=== PATIENT | female | born 1965 | race Caucasian/White ===

== ENCOUNTER → 2016-09-03 | Outpatient (CLI) | payer OTHER ==
--- NOTE | 2016-09-03 15:47 | REP ---
Clinical: Left adnexal cysts. Technique: Transabdominal pelvic ultrasound followed by transvaginal examination for better evaluation of the adnexa. Correlation: CT dated 05/19/2016. Findings: Bladder is unremarkable and measures 8.8 x 6.4 x 5.6 cm. The patient is status post hysterectomy and oophorectomy. Residual cervical tissue demonstrate small chronic calcifications. No pelvic mass or fluid collection identified. No obvious adnexal cyst. Impression: Status post hysterectomy and oophorectomy. Small left adnexal cysts identified on CT are not visualized by current ultrasound. Signed by Juan Carlos Lucas MD 09/03/2016 03:39 P
== END ==
LOC: M RAD 13:41
PROVIDERS: ATTEND Specialist
DX: N83.292 Other ovarian cyst, left side (principal); Z87.898 Personal history of other specified conditions

== ENCOUNTER → 2016-09-07 | Outpatient (REF) | payer OTHER ==
[2016-09-07 12:44] LABS: MEAN CORPUSCULAR HEMOGLOBIN 29.3 pg (27.0-33.0); MEAN CORPUSCULAR HGB CONC 32.7 g/dl (32.0-36.5); MEAN CORPUSCULAR VOLUME 89.5 fl (80.0-96.0); RED CELL DISTRIBUTION WIDTH 13.4 % (11.5-14.5); WHITE BLOOD COUNT 6.6 K/mm3 (4.0-10.0)
[2016-09-07 12:55] LABS: ALBUMIN 3.4 GM/DL (3.2-5.2); ALBUMIN/GLOBULIN RATIO 1.13 (1.00-1.93); BILIRUBIN,TOTAL 0.4 MG/DL (0.2-1.0); CALCIUM LEVEL 8.5 MG/DL (8.5-10.1); CREATININE FOR GFR 1.73 MG/DL (0.55-1.02); GLOMERULAR FILTRATION RATE 33.5 (>58); POTASSIUM SERUM 4.3 MEQ/L (3.5-5.1); TOTAL PROTEIN 6.4 GM/DL (6.4-8.2)
== END ==
LOC: M LABDRAW1 11:40
PROVIDERS: ATTEND Nurse Practitioner Family
DX: E78.00 Pure hypercholesterolemia, unspecified (principal)

== ENCOUNTER → 2016-09-25 | Emergency (ER) | payer OTHER ==
[~2016-09-25] VITALS: Ht 162.6 cm; Wt 131.5 kg
[~2016-09-25] MED LIST: BUPR300T34; CALC1CAP31; FURO20TA2 PO; HYDR25T; K-TA10TA2 PO; LASI20TA PO; POTA1TAB23 PO; PRIL20CA9 PO; SIMV20TA2 PO; SIMV40TA2 PO; TRAM50TA2 PO; VITA50003
[2016-09-25 17:58] VITALS: BP 138/92
== END | disposition home or self-care (01) ==
LOC: M ED 18:56
DX: H92.02 Otalgia, left ear (principal); F17.210 Nicotine dependence, cigarettes, uncomplicated; Z79.899 Other long term (current) drug therapy

== ENCOUNTER 2016-10-09 17:04 | Emergency (ER) | payer OTHER ==
[~2016-10-09] VITALS: Ht 162.6 cm; Wt 132.9 kg
[~2016-10-09 17:04] MED LIST changes: -BUPR300T34; -CALC1CAP31; -FURO20TA2 PO; -HYDR25T; -POTA1TAB23 PO; -SIMV20TA2 PO; -VITA50003
[2016-10-09] MEDS ORDERED: CALC1CAP31 (17:15)
[2016-10-09] MEDS ORDERED: HYDR25T (17:15)
[2016-10-09] MEDS ORDERED: SIMV20TA2 PO (17:15)
[2016-10-09] MEDS ORDERED: VITA50003 (17:15)
[2016-10-09] MEDS ORDERED: BUPR300T34 (17:15)
[2016-10-09] MEDS ORDERED: FURO20TA2 PO (17:15)
[2016-10-09] MEDS ORDERED: POTA1TAB23 PO (17:15)
--- NOTE | 2016-10-09 18:26 | REP ---
BILATERAL RIBS AND PA CHEST, FIVE VIEWS: HISTORY: Rib pain. COMPARISON: 08/03/2013 The lungs are clear. The heart is normal in size. The pulmonary vasculature is normal in appearance. The bony structure is intact. IMPRESSION:No acute disease. Signed by Oh Reina MD 10/09/2016 06:31 P
[2016-10-09 18:48] VITALS: BP 136/79
== END 2016-10-09 18:51 | disposition home or self-care (01) ==
LOC: M ED 18:24
DX: S20.221A Contusion of right back wall of thorax, initial encounter (principal); S20.222A Contusion of left back wall of thorax, initial encounter; V49.40XA Driver injured in collision with unspecified motor vehicles in traffic accident, initial encounter; Y92.410 Unspecified street and highway as the place of occurrence of the external cause; E78.00 Pure hypercholesterolemia, unspecified; J45.909 Unspecified asthma, uncomplicated; Z85.41 Personal history of malignant neoplasm of cervix uteri; F17.210 Nicotine dependence, cigarettes, uncomplicated; Z79.899 Other long term (current) drug therapy

== ENCOUNTER 2016-12-29 10:51 | Emergency (ER) | payer OTHER ==
[~2016-12-29] VITALS: Ht 162.6 cm; Wt 134.1 kg
[2016-12-29 10:51] VITALS: BP 120/95
[~2016-12-29 10:51] MED LIST changes: +BUPR300T34; +CALC1CAP31; +FURO20TA2 PO; +HYDR-3363 PO; +POTA1TAB23 PO; +SIMV20TA2 PO; +VITA1CAP40 PO
[2016-12-29] MEDS ORDERED: FLON1SPR (11:09)
[2016-12-29] MEDS ORDERED: CLAR1TAB13 PO (11:09)
[2016-12-29] MEDS ORDERED: CEFD1CAP8 PO (11:28)
[2016-12-29] MEDS ORDERED: OFLO0.3D57 OU (11:28)
== END 2016-12-29 11:39 | disposition home or self-care (01) ==
LOC: M ED 10:51
DX: H65.193 Other acute nonsuppurative otitis media, bilateral (principal); H10.10 Acute atopic conjunctivitis, unspecified eye; J45.909 Unspecified asthma, uncomplicated; F41.9 Anxiety disorder, unspecified; F33.8 Other recurrent depressive disorders; Z85.41 Personal history of malignant neoplasm of cervix uteri; Z79.899 Other long term (current) drug therapy

== ENCOUNTER → 2017-01-19 | Outpatient (REF) | payer OTHER ==
[~2017-01-19] MED LIST changes: +CEFD1CAP8 PO; +CLAR1TAB13 PO; +FLON1SPR; +OFLO0.3D57 OU; +ZYRT10CA PO
== END ==
LOC: M LAB REF 12:44
PROVIDERS: ATTEND Internal Medicine Nephrology
DX: N39.0 Urinary tract infection, site not specified (principal)

== ENCOUNTER 2017-02-11 09:41 | Emergency (ER) | payer OTHER ==
[~2017-02-11] VITALS: Ht 162.6 cm; Wt 136.0 kg
[~2017-02-11 09:41] MED LIST changes: -ZYRT10CA PO
[2017-02-11 10:40] LABS: BASO # 0.1 K/mm3 (0.0-0.2); BASO % 1.2 % (0.0-1.0); EOS # 0.3 K/mm3 (0.0-0.50); EOS % 3.8 % (0.0-3.0); LARGE UNSTAINED CELL # 0.2 K/mm3 (0.0-0.4); LARGE UNSTAINED CELL % 1.9 % (0.0-4.0); LYMPH # 3.9 K/mm3 (1.5-4.5); LYMPH % 50.1 % (24.0-44.0); MEAN CORPUSCULAR HEMOGLOBIN 30.3 pg (27.0-33.0); MEAN CORPUSCULAR HGB CONC 33.5 g/dl (32.0-36.5); MEAN CORPUSCULAR VOLUME 90.4 fl (80.0-96.0); MONO # 0.3 K/mm3 (0.0-0.8); PLATELET COUNT, AUTOMATED 234 k/mm3 (150-450); WHITE BLOOD COUNT 7.8 K/mm3 (4.0-10.0)
[2017-02-11 11:19] LABS: ALBUMIN 3.6 GM/DL (3.2-5.2); BILIRUBIN,DIRECT 0.1 MG/DL (0.0-0.2); BILIRUBIN,TOTAL 0.5 MG/DL (0.2-1.0); CALCIUM LEVEL 8.9 MG/DL (8.5-10.1); CREATININE FOR GFR 1.87 MG/DL (0.55-1.02); GLOMERULAR FILTRATION RATE 30.5 (>58); POTASSIUM SERUM 4.1 MEQ/L (3.5-5.1); TOTAL PROTEIN 7.2 GM/DL (6.4-8.2)
--- NOTE | 2017-02-11 11:42 | REP ---
CT ABDOMEN PELVIS WITHOUT IV OR ORAL CONTRAST: HISTORY: Left upper quadrant and left CVA pain. History of polycystic kidney disease. COMPARISON STUDY: May 19, 2016. CT FINDINGS: Preliminary knocker out radiograph shows clips in the gallbladder fossa. The lung bases are clear. The liver shows moderate diffuse fatty infiltration. This is more pronounced than on the prior study. There are rounded and geographic areas of lower density within the left lobe and right lobe of the liver consistent with focal fatty replacement. The spleen is unremarkable. No adrenal lesion is observed. Pancreas is unremarkable. The kidneys are enlarged and are seen to containing numerous cysts as before. No evidence of mass or hydronephrosis. There is evidence of intrarenal calculi and some focal cyst wall calcification bilaterally unchanged. No retroperitoneal mass or adenopathy is seen. Normal aorta is seen. A normal appendix is noted in the right lower quadrant. Uterus is surgically absent. Urinary bladder is empty at the time of scanning but otherwise unremarkable. No abdominal wall defect is seen. Bone window settings show no bony destructive lesion. IMPRESSION: 1. Polycystic kidney disease with an enlarged polycystic kidneys bilaterally unchanged from prior study. Small intrarenal calculi bilaterally. No hydronephrosis. 2. Moderate diffuse fatty infiltration of the liver more pronounced than on the prior exam. 3. Post cholecystectomy and hysterectomy. Otherwise unremarkable. Signed by Michel Zaidi MD 02/11/2017 02:37 P
[2017-02-11] MEDS ORDERED: TRAM50TA2 PO (11:45)
[2017-02-11 11:50] VITALS: BP 117/74
== END 2017-02-11 11:58 | disposition home or self-care (01) ==
LOC: M ED 09:41
DX: Q61.3 Polycystic kidney, unspecified (principal); K76.0 Fatty (change of) liver, not elsewhere classified; M54.5 Low back pain; K21.9 Gastro-esophageal reflux disease without esophagitis; J45.909 Unspecified asthma, uncomplicated; E78.00 Pure hypercholesterolemia, unspecified; F41.9 Anxiety disorder, unspecified; F17.210 Nicotine dependence, cigarettes, uncomplicated; Z87.442 Personal history of urinary calculi; Z79.899 Other long term (current) drug therapy

== ENCOUNTER → 2017-02-18 | Outpatient (REF) | payer OTHER ==
[~2017-02-18] MED LIST changes: +ZYRT10CA PO
[2017-02-18 13:47] LABS: MEAN CORPUSCULAR HEMOGLOBIN 29.7 pg (27.0-33.0); MEAN CORPUSCULAR HGB CONC 32.6 g/dl (32.0-36.5); MEAN CORPUSCULAR VOLUME 91.1 fl (80.0-96.0); RED CELL DISTRIBUTION WIDTH 14.1 % (11.5-14.5); WHITE BLOOD COUNT 7.7 K/mm3 (4.0-10.0)
[2017-02-18 14:35] LABS: ALBUMIN 3.3 GM/DL (3.2-5.2); ALBUMIN/GLOBULIN RATIO 1.03 (1.00-1.93); BILIRUBIN,TOTAL 0.5 MG/DL (0.2-1.0); CALCIUM LEVEL 8.4 MG/DL (8.5-10.1); CREATININE FOR GFR 1.6 MG/DL (0.55-1.02); GLOMERULAR FILTRATION RATE 36.5 (>58); POTASSIUM SERUM 4.4 MEQ/L (3.5-5.1); TOTAL PROTEIN 6.5 GM/DL (6.4-8.2)
== END ==
LOC: M LABDRAW1 09:52
PROVIDERS: ATTEND Nurse Practitioner Family
DX: E78.00 Pure hypercholesterolemia, unspecified (principal); I10 Essential (primary) hypertension

== ENCOUNTER 2017-03-26 08:14 | Emergency (ER) | payer OTHER ==
[~2017-03-26] VITALS: Ht 162.6 cm; Wt 136.4 kg
[~2017-03-26 08:14] MED LIST changes: -ZYRT10CA PO
[2017-03-26] MEDS ORDERED: ZYRT10CA PO (08:40)
[2017-03-26 09:22] LABS: CONTROL LINE UCG INT CTR LINE PRESENT
[2017-03-26 09:33] LABS: BASO # 0.1 10^3/uL (0.0-0.2); BASO % 0.7 % (0.0-1.0); EOS # 0.2 10^3/uL (0.0-0.50); EOS % 2.3 % (0.0-3.0); IMMATURE GRANULOCYTE % 0.7 % (0-0); LYMPH # 3.9 10^3/uL (1.5-4.5); LYMPH % 42.2 % (24.0-44.0); MEAN CORPUSCULAR HEMOGLOBIN 29.5 pg (27.0-33.0); MEAN CORPUSCULAR HGB CONC 33.5 g/dl (32.0-36.5); MEAN CORPUSCULAR VOLUME 88.1 fl (80.0-96.0); MONO # 0.5 10^3/uL (0.0-0.8); MONO % 5.8 % (0.0-5.0); NEUTROPHILS # 4.5 10^3/uL (1.8-7.7); NEUTROPHILS % 48.3 % (36.0-66.0); PLATELET COUNT, AUTOMATED 218 10^3/uL (150-450); RED CELL DISTRIBUTION WIDTH 14.6 % (11.5-14.5); WHITE BLOOD COUNT 9.2 10^3/uL (4.0-10.0)
[2017-03-26 09:49] LABS: ALBUMIN 3.3 GM/DL (3.2-5.2); ALBUMIN/GLOBULIN RATIO 0.94 (1.00-1.93); BILIRUBIN,DIRECT 0.1 MG/DL (0.0-0.2); BILIRUBIN,TOTAL 0.5 MG/DL (0.2-1.0); CALCIUM LEVEL 8.8 MG/DL (8.5-10.1); CREATININE FOR GFR 1.74 MG/DL (0.55-1.02); GLOMERULAR FILTRATION RATE 33.1 (>58); POTASSIUM SERUM 4.2 MEQ/L (3.5-5.1); TOTAL PROTEIN 6.8 GM/DL (6.4-8.2)
--- NOTE | 2017-03-26 10:46 | REP ---
Renal ultrasound: The patient has known polycystic renal disease. The patient complains of left leg pain. There are numerous bilateral renal cyst can compatible with the history of polycystic renal disease. The kidneys are enlarged. The right kidney measures 14.2 x 6.7 x 7.7 cm. Left kidney measures 20.7 x 7 x 198.5 cm. There is no hydronephrosis on the right on the left. No renal calculi or masses are identified. Very low normal renal parenchyma is identified, the parenchymal mostly replaced by numerous renal cysts bilaterally. Study is technically difficult because of patient body habitus and polycystic renal disease. Impression: There is no hydronephrosis. No renal calculi are identified. Numerous renal cysts are identified bilaterally compatible with the clinical history of polycystic renal disease. Bladder ultrasound: No bladder wall masses or polyps are identified. The bladder is otherwise unremarkable. Impression: There is no hydronephrosis. No renal calculi are identified. Numerous renal cortical cysts are identified compatible with the clinical history of polycystic renal disease. No definable normal renal parenchyma is identified. Signed by Darnell Booker MD 03/26/2017 10:38 A
[2017-03-26 11:02] VITALS: BP 138/98
== END 2017-03-26 11:02 | disposition home or self-care (01) ==
LOC: M ED 08:14
DX: Q61.3 Polycystic kidney, unspecified (principal); J45.909 Unspecified asthma, uncomplicated; E78.70 Disorder of bile acid and cholesterol metabolism, unspecified; F33.9 Major depressive disorder, recurrent, unspecified; F17.210 Nicotine dependence, cigarettes, uncomplicated; Z79.899 Other long term (current) drug therapy; Z87.442 Personal history of urinary calculi; Z98.890 Other specified postprocedural states

== ENCOUNTER → 2017-04-09 | Outpatient (REF) | payer OTHER ==
[~2017-04-09] MED LIST changes: +ZYRT10CA PO
== END ==
LOC: M LAB REF 13:05
PROVIDERS: ATTEND Internal Medicine Nephrology
DX: R10.32 Left lower quadrant pain (principal)

== ENCOUNTER 2017-06-01 08:43 | Emergency (ER) | payer OTHER ==
[~2017-06-01] VITALS: Ht 162.6 cm; Wt 140.9 kg
[2017-06-01 08:43] VITALS: BP 116/84
[2017-06-01] MEDS ORDERED: AUGM875T28 PO (09:18)
== END 2017-06-01 09:29 | disposition home or self-care (01) ==
LOC: M ED 08:43
DX: R51 Headache (principal); J01.01 Acute recurrent maxillary sinusitis; Z72.0 Tobacco use

== ENCOUNTER → 2017-06-19 | Outpatient (CLI) | payer OTHER ==
[2017-06-19 12:18] LABS: HEMATOCRIT 51.3 % (36.0-47.0); HEMOGLOBIN 16.6 g/dl (12.0-16.0); MEAN CORPUSCULAR HEMOGLOBIN 29.1 pg (27.0-33.0); MEAN CORPUSCULAR HGB CONC 32.4 g/dl (32.0-36.5); MEAN CORPUSCULAR VOLUME 89.8 fl (80.0-96.0); PLATELET COUNT, AUTOMATED 216 10^3/uL (150-450); RED BLOOD COUNT 5.71 10^6/uL (4.00-5.40); RED CELL DISTRIBUTION WIDTH 13.8 % (11.5-14.5); WHITE BLOOD COUNT 7.4 10^3/uL (4.0-10.0)
[2017-06-19 12:41] LABS: ALBUMIN 3.4 GM/DL (3.2-5.2); ALBUMIN/GLOBULIN RATIO 1.06 (1.00-1.93); ALKALINE PHOSPHATASE 88 U/L (45-117); ALT/SGPT 59 U/L (12-78); ANION GAP 6 MEQ/L (8-16); AST/SGOT 79 U/L (7-37); BILIRUBIN,TOTAL 0.4 MG/DL (0.2-1.0); BLOOD UREA NITROGEN 14 MG/DL (7-18); CALCIUM LEVEL 8.7 MG/DL (8.5-10.1); CARBON DIOXIDE LEVEL 28 MEQ/L (21-32); CHLORIDE LEVEL 109 MEQ/L (98-107); CHOLESTEROL LEVEL 178 MG/DL (<200); CHOLESTEROL RISK RATIO 4.684 (<5); CPK CREATINE PHOSPHOKINASE 97 U/L (26-192); CREATININE FOR GFR 1.71 MG/DL (0.55-1.02); GLOMERULAR FILTRATION RATE 33.8 (>58); GLUCOSE, FASTING 94 MG/DL (70-105); HDL CHOLESTEROL 38 MG/DL (>40); LDL CHOLESTEROL 105.6 MG/DL (<100); NON-HDL-C 140 MG/DL; POTASSIUM SERUM 4.9 MEQ/L (3.5-5.1); SODIUM LEVEL 143 MEQ/L (136-145); TOTAL PROTEIN 6.6 GM/DL (6.4-8.2); TRIGLYCERIDES LEVEL 172 MG/DL (<150)
[2017-06-21 09:02] LABS: TOTAL 25(OH) VITAMIN D 50.5 NG/ML (30.0-100.0)
== END ==
LOC: M LAB 11:40
DX: E55.9 Vitamin D deficiency, unspecified (principal); E78.00 Pure hypercholesterolemia, unspecified; E78.5 Hyperlipidemia, unspecified; E78.1 Pure hyperglyceridemia; T78.40XA Allergy, unspecified, initial encounter
CPT/HCPCS: 82550

== ENCOUNTER 2017-09-30 17:14 | Emergency (ER) | payer BC, OTHER | END 2017-09-30 17:56 | disposition home or self-care (01) | LOC: M ED 17:14 | DX: J01.80 Other acute sinusitis (principal); Z85.41 Personal history of malignant neoplasm of cervix uteri; J45.909 Unspecified asthma, uncomplicated; K21.9 Gastro-esophageal reflux disease without esophagitis; M54.9 Dorsalgia, unspecified; Z87.442 Personal history of urinary calculi; Z79.899 Other long term (current) drug therapy | CPT/HCPCS: 99282 ==

== ENCOUNTER 2017-10-18 08:57 | Emergency (ER) | payer BC | END 2017-10-18 12:24 | disposition home or self-care (01) | LOC: M ED 08:57 | DX: M47.812 Spondylosis without myelopathy or radiculopathy, cervical region (principal); M47.814 Spondylosis without myelopathy or radiculopathy, thoracic region; M47.816 Spondylosis without myelopathy or radiculopathy, lumbar region; M47.817 Spondylosis without myelopathy or radiculopathy, lumbosacral region; M48.061 Spinal stenosis, lumbar region without neurogenic claudication; M54.12 Radiculopathy, cervical region; Q61.3 Polycystic kidney, unspecified; E78.5 Hyperlipidemia, unspecified; M54.30 Sciatica, unspecified side; J45.909 Unspecified asthma, uncomplicated; F41.9 Anxiety disorder, unspecified; F17.200 Nicotine dependence, unspecified, uncomplicated; Z79.899 Other long term (current) drug therapy | CPT/HCPCS: 72128 ==

== ENCOUNTER → 2018-03-27 | Outpatient (CLI) | payer BC ==
[2018-03-27 12:00] LABS: ALBUMIN 3.1 GM/DL (3.2-5.2); ALKALINE PHOSPHATASE 91 U/L (45-117); ALT/SGPT 41 U/L (12-78); ANION GAP 7 MEQ/L (8-16); AST/SGOT 44 U/L (7-37); BILIRUBIN,TOTAL 0.6 MG/DL (0.2-1.0); BLOOD UREA NITROGEN 17 MG/DL (7-18); CALCIUM LEVEL 8.4 MG/DL (8.5-10.1); CARBON DIOXIDE LEVEL 30 MEQ/L (21-32); CHLORIDE LEVEL 108 MEQ/L (98-107); CHOLESTEROL LEVEL 150 MG/DL (<200); CHOLESTEROL RISK RATIO 4.687 (<5); CPK CREATINE PHOSPHOKINASE 64 U/L (26-192); CREATININE FOR GFR 1.86 MG/DL (0.55-1.30); GLOMERULAR FILTRATION RATE 30.5 (>51); GLUCOSE, FASTING 109 MG/DL (70-100); HDL CHOLESTEROL 32 MG/DL (>40); LDL CHOLESTEROL 82 MG/DL (<100); NON-HDL-C 118 MG/DL; POTASSIUM SERUM 4.7 MEQ/L (3.5-5.1); SODIUM LEVEL 145 MEQ/L (136-145); TOTAL PROTEIN 6.2 GM/DL (6.4-8.2); TRIGLYCERIDES LEVEL 182 MG/DL (<150)
[2018-03-28 09:00] LABS: TOTAL 25(OH) VITAMIN D 38.2 NG/ML (30.0-100.0)
== END ==
LOC: M LAB 11:03
DX: E78.00 Pure hypercholesterolemia, unspecified (principal); I10 Essential (primary) hypertension; E55.9 Vitamin D deficiency, unspecified
CPT/HCPCS: 82550

== ENCOUNTER → 2018-03-28 | Outpatient (CLI) | payer BC ==
[2018-03-28 22:38] LABS: HEMATOCRIT 49.4 % (36.0-47.0); MEAN CORPUSCULAR HEMOGLOBIN 30.2 pg (27.0-33.0); MEAN CORPUSCULAR HGB CONC 32.4 g/dl (32.0-36.5); MEAN CORPUSCULAR VOLUME 93.4 fl (80.0-96.0); PLATELET COUNT, AUTOMATED 192 10^3/uL (150-450); RED BLOOD COUNT 5.29 10^6/uL (4.00-5.40); RED CELL DISTRIBUTION WIDTH 14.4 % (11.5-14.5); WHITE BLOOD COUNT 10.3 10^3/uL (4.0-10.0)
== END ==
LOC: M LAB 16:33
DX: R53.83 Other fatigue (principal); D64.9 Anemia, unspecified
CPT/HCPCS: 84443

== ENCOUNTER 2018-06-29 15:56 | Emergency (ER) | payer BC ==
[~2018-06-29] VITALS: Ht 162.6 cm; Wt 137.7 kg
[~2018-06-29 15:56] MED LIST changes: +ALEV220C2 PO; +AUGM875T28 PO; -LASI20TA PO; +LASI20TA3 PO; -VITA1CAP40 PO; +VITA50005 PO; +[UNRECOGNIZED DRUG - CODE] XX
[2018-06-29] MEDS ORDERED: POTA4.25 PO (16:13)
[2018-06-29] MEDS ORDERED: LEVO50TA5 PO (16:13)
[2018-06-29] MEDS ORDERED: ONDANSETRON 4 MG ORAL DISINTEGRATING TAB (Q0162 PER 1MG) PO ONE (16:30)
[2018-06-29 17:13] LABS: HEMATOCRIT 51.4 % (36.0-47.0); HEMOGLOBIN 17.2 g/dl (12.0-15.5); MEAN CORPUSCULAR HEMOGLOBIN 30.8 pg (27.0-33.0); MEAN CORPUSCULAR HGB CONC 33.5 g/dl (32.0-36.5); MEAN CORPUSCULAR VOLUME 92.1 fl (80.0-96.0); PLATELET COUNT, AUTOMATED 175 10^3/uL (150-450); RED BLOOD COUNT 5.58 10^6/uL (4.00-5.40); WHITE BLOOD COUNT 9.6 10^3/uL (4.0-10.0)
[2018-06-29 17:14] LABS: CALCIUM LEVEL 9.3 MG/DL (8.5-10.1); CREATININE FOR GFR 1.97 MG/DL (0.55-1.30); GLOMERULAR FILTRATION RATE 28.6 (>51); POTASSIUM SERUM 4.6 MEQ/L (3.5-5.1)
[2018-06-29 17:44] LABS: ATYPICAL LYMPH 8 % (0-5); EOSINOPHILS 3 % (0-5); GIANT PLATELETS 1+; LYMPHOCYTES 39 % (16-52); MONOCYTES 7 % (0-8); NEUTROPHILS 43 % (35-75); PLATELET ESTIMATE NORMAL (NORMAL)
[2018-06-29] MEDS ORDERED: TRAM50TA2 PO (17:53)
[2018-06-29] MEDS ORDERED: KEFL500C17 PO (17:53)
[2018-06-29 17:54] VITALS: BP 119/69
--- NOTE | 2018-06-29 18:04 | REP ---
CT abdomen and pelvis without IV or oral contrast: History: Left flank pain. History of stones. Comparison CT study February 11, 2017. Findings: Preliminary digital financial aid manager radiograph is unremarkable. The lung bases are clear. There are multiple small low-density areas in the liver unchanged from prior study consistent with cysts. The largest of these in the left lobe measuring 2.3 cm. There is diffuse fatty infiltration of the liver. The spleen is unremarkable. No pancreatic abnormality is seen. The gallbladder is surgically absent. There are innumerable cysts producing enlargement of the kidneys bilaterally consistent with polycystic kidney disease. There is an intrarenal calculus in the lower pole of the right kidney measuring 6 mm in greatest diameter. There are some cyst wall calcification. Parenchymal calcifications but no other intrarenal stone is appreciated. No hydronephrosis is seen on either side. The right lower pole intrarenal calculus is unchanged from the comparison CT study. No retroperitoneal mass or adenopathy is seen. The uterus is surgically absent. Normal appendix is seen in the right lower quadrant. No abdominal wall defect is seen. There is no bony destructive lesion. Some degenerative spondylosis changes are noted. There is a left ovarian cyst 5.3 x 3.7 x 5.2 cm in diameter. This is larger than it was on January 2017. Impression: Polycystic kidney disease. No hydronephrosis seen. There is a 6 mm calculus in the lower pole of the right kidney unchanged. There is a 5.3 cm cystic lesion in the left ovary increased in size from February 11, 2017. No acute intra-abdominal abnormality. Electronically Signed by Michel Zaidi MD 06/29/2018 07:45 P
--- NOTE | 2018-07-01 08:23 | ED PDOC ---
Post-Departure Follow-Up robyn hadley faxed formal report of ct abd/p for fu Reji Rivas MD Jul 01, 2018 08:23
== END 2018-06-29 18:02 | disposition home or self-care (01) ==
LOC: M ED 15:56
DX: R10.9 Unspecified abdominal pain (principal)
CPT/HCPCS: 74176; 80048; 81001; 85025; 87086; 99283; Q0162

== ENCOUNTER → 2018-08-06 | Outpatient (CLI) | payer BC ==
[~2018-08-06] MED LIST changes: +KEFL500C17 PO; +LEVO50TA5 PO; +POTA4.25 PO
[2018-08-06 12:12] LABS: HEMATOCRIT 49.6 % (36.0-47.0); HEMOGLOBIN 16.3 g/dl (12.0-15.5); MEAN CORPUSCULAR HEMOGLOBIN 30.1 pg (27.0-33.0); MEAN CORPUSCULAR HGB CONC 32.9 g/dl (32.0-36.5); MEAN CORPUSCULAR VOLUME 91.5 fl (80.0-96.0); PLATELET COUNT, AUTOMATED 148 10^3/uL (150-450); RED BLOOD COUNT 5.42 10^6/uL (4.00-5.40); WHITE BLOOD COUNT 8.5 10^3/uL (4.0-10.0)
[2018-08-06 12:46] LABS: ALBUMIN 3.1 GM/DL (3.2-5.2); BILIRUBIN,TOTAL 0.4 MG/DL (0.2-1.0); CALCIUM LEVEL 8.6 MG/DL (8.5-10.1); CHOLESTEROL RISK RATIO 4.571 (<5); CREATININE FOR GFR 1.71 MG/DL (0.55-1.30); GLOMERULAR FILTRATION RATE 33.6 (>51); POTASSIUM SERUM 4.3 MEQ/L (3.5-5.1); TOTAL PROTEIN 6.5 GM/DL (6.4-8.2)
== END ==
LOC: M LAB 11:47
PROVIDERS: ATTEND Nurse Practitioner Family
DX: I10 Essential (primary) hypertension (principal); D64.9 Anemia, unspecified; E53.8 Deficiency of other specified B group vitamins

== ENCOUNTER → 2018-08-31 | Outpatient (REF) | payer BC | LOC: M LAB REF 12:32 | PROVIDERS: ATTEND Surgery | DX: D17.22 Benign lipomatous neoplasm of skin and subcutaneous tissue of left arm (principal) ==

== ENCOUNTER → 2018-11-20 | Outpatient (CLI) | payer BC ==
[~2018-11-20] MED LIST changes: +ALLE10TA62 PO; +OMEP20TA17 PO; +ZETI10TA30 PO
[2018-11-20 13:06] LABS: HEMATOCRIT 47.4 % (36.0-47.0); HEMOGLOBIN 15.8 g/dl (12.0-15.5); MEAN CORPUSCULAR HEMOGLOBIN 30.4 pg (27.0-33.0); MEAN CORPUSCULAR HGB CONC 33.3 g/dl (32.0-36.5); MEAN CORPUSCULAR VOLUME 91.3 fl (80.0-96.0); PLATELET COUNT, AUTOMATED 128 10^3/uL (150-450); RED BLOOD COUNT 5.19 10^6/uL (4.00-5.40); WHITE BLOOD COUNT 8.8 10^3/uL (4.0-10.0)
[2018-11-20 13:38] LABS: ALBUMIN 2.8 GM/DL (3.2-5.2); BILIRUBIN,TOTAL 0.5 MG/DL (0.2-1.0); CALCIUM LEVEL 8.2 MG/DL (8.5-10.1); CHOLESTEROL RISK RATIO 4.838 (<5); CREATININE FOR GFR 2.08 MG/DL (0.55-1.30); FREE T4 1.18 NG/DL (0.76-1.46); GLOMERULAR FILTRATION RATE 26.7 (>51); POTASSIUM SERUM 4.1 MEQ/L (3.5-5.1); THYROID STIMULATING HORMONE 0.034 uIU/ML (0.358-3.740); TOTAL PROTEIN 6.5 GM/DL (6.4-8.2)
== END ==
LOC: M LAB 12:40
PROVIDERS: ATTEND Nurse Practitioner Family
DX: E03.9 Hypothyroidism, unspecified (principal); E78.5 Hyperlipidemia, unspecified; I10 Essential (primary) hypertension; R73.9 Hyperglycemia, unspecified

== ENCOUNTER → 2019-01-06 | Outpatient (CLI) | payer BC ==
--- NOTE | 2019-01-06 15:15 | REP ---
RENAL AND BLADDER ULTRASOUND: Real-time sonographic evaluation of the kidneys performed. Both kidneys are enlarged, right kidney measuring 18.2 x 7.7 x 7.9 cm and left kidney 14.9 x 6.9 x 7.0 cm. There is no hydronephrosis bilaterally. The study is limited due to patient body habitus. Borders of the kidney are not well defined. Multiple renal cysts are present. The largest cyst on the right in the upper pole measures 3.8 cm and largest cyst in the left is in the lower pole 3 cm in diameter. Underlying renal calculi cannot be excluded. Urinary bladder is mildly distended and grossly unremarkable. IMPRESSION: Enlarged kidneys with multiple cysts. Underlying stones not excluded. No hydronephrosis. The study is extremely limited due to patient body habitus. Underlying solid mass could easily be missed. Electronically Signed by Darnell San MD 01/10/2019 05:36 P
== END ==
LOC: M RAD 13:39
PROVIDERS: ATTEND Internal Medicine Nephrology
DX: N18.4 Chronic kidney disease, stage 4 (severe) (principal); N20.0 Calculus of kidney; Q61.2 Polycystic kidney, adult type

== ENCOUNTER → 2019-02-03 | Outpatient (REF) | payer BC ==
[~2019-02-03] MED LIST changes: +ZETI10TA16 PO; -ZETI10TA30 PO
== END ==
LOC: M LAB REF 17:00
PROVIDERS: ATTEND Internal Medicine Nephrology
DX: R10.812 Left upper quadrant abdominal tenderness (principal)

== ENCOUNTER → 2019-02-06 | Outpatient (CLI) | payer BC ==
--- NOTE | 2019-02-07 11:13 | REP ---
CT of the abdomen pelvis without IV or bowel contrast for left upper quadrant pain and tenderness: Comparison is 08/31/2018. The the patient has known polycystic renal disease. There are multiple bilateral renal cysts, unchanged. There are hepatic cysts, unchanged. There are bilateral non obstructive renal calculi, unchanged. There is no hydronephrosis or hydroureter. There is no perinephric stranding. The the patient has a hysterectomy and reportedly also for activity. There is a 5.28 cm cyst in the pelvis on the left. This measured 4.9 cm previously. This could be a mesenteric cyst. The visualized lung temple are unremarkable. There are surgical clips in the gallbladder fossa, unchanged. The pancreas, spleen, adrenals, and abdominal aorta are unremarkable. There is no retroperitoneal adenopathy or mass. There is no bowel distension or obstruction. Mesentery is unremarkable. Pelvis: The appendix is unremarkable. There is no ascites. The bladder is unremarkable. The vaginal cuff is unremarkable. There is a cyst on the left as previously described. There is no ascites or adenopathy. There are scattered diverticula in the descending colon. There is no CT evidence of diverticulitis. There is degenerative disc disease in the lumbar spine at L 03/04 with an anterior bridging osteophyte. This is unchanged. Impression: There is no interval change except that the pelvic cyst on the left has increased in size. Known polycystic renal disease is unchanged. Nonobstructive bilateral renal calculi are unchanged. There is no hydronephrosis or hydroureter. Hepatic cysts are unchanged. There is a cyst in the pelvis on the left. This has increased in size, today measuring 5.28 cm, previously 4.9 cm. With the history of oophorectomy this may be a mesenteric cyst. There is descending colon diverticulosis without diverticulitis. Electronically Signed by Darnell Booker MD 02/06/2019 08:16 A
== END ==
LOC: M RAD 07:24
PROVIDERS: ATTEND Internal Medicine Nephrology
DX: N18.4 Chronic kidney disease, stage 4 (severe) (principal); Q61.2 Polycystic kidney, adult type

== ENCOUNTER → 2019-02-26 | Outpatient (CLI) | payer BC ==
[2019-02-26 12:52] LABS: HEMATOCRIT 50.3 % (36.0-47.0); HEMOGLOBIN 16.6 g/dl (12.0-15.5); MEAN CORPUSCULAR HEMOGLOBIN 30.6 pg (27.0-33.0); MEAN CORPUSCULAR VOLUME 92.6 fl (80.0-96.0); PLATELET COUNT, AUTOMATED 174 10^3/uL (150-450); RED BLOOD COUNT 5.43 10^6/uL (4.00-5.40); WHITE BLOOD COUNT 8.6 10^3/uL (4.0-10.0)
[2019-02-26 13:10] LABS: HEMOGLOBIN A1c 7.2 %
[2019-02-26 13:23] LABS: MAU/CREAT RATIO 60.1 MCG/MG (0.0-30.0)
[2019-02-26 13:39] LABS: ALBUMIN 3.2 GM/DL (3.2-5.2); BILIRUBIN,TOTAL 0.4 MG/DL (0.2-1.0); CALCIUM LEVEL 8.8 MG/DL (8.5-10.1); CHOLESTEROL RISK RATIO 4.757 (<5); CREATININE FOR GFR 2.24 MG/DL (0.55-1.30); FREE T4 0.92 NG/DL (0.76-1.46); GLOMERULAR FILTRATION RATE 24.5 (>51); POTASSIUM SERUM 4.7 MEQ/L (3.5-5.1); THYROID STIMULATING HORMONE 7.3 uIU/ML (0.358-3.740); TOTAL PROTEIN 6.6 GM/DL (6.4-8.2)
[2019-02-27 09:52] LABS: TOTAL 25(OH) VITAMIN D 45.1 NG/ML (30.0-100.0)
== END ==
LOC: M LAB 12:06
PROVIDERS: ATTEND Nurse Practitioner Family
DX: E78.5 Hyperlipidemia, unspecified (principal); I10 Essential (primary) hypertension; E55.9 Vitamin D deficiency, unspecified

== ENCOUNTER 2019-03-15 15:21 | Emergency (ER) | payer BC ==
[~2019-03-15] VITALS: Ht 162.6 cm; Wt 137.7 kg
[2019-03-15] MEDS ORDERED: GLIM1TAB PO (16:34)
[2019-03-15] MEDS ORDERED: MONT10TA2 (16:34)
[2019-03-15] MEDS ORDERED: NS 1,000 ML IV ONE (17:15)
[2019-03-15 17:54] LABS: HEMATOCRIT 52.2 % (36.0-47.0); MEAN CORPUSCULAR HEMOGLOBIN 30.1 pg (27.0-33.0); MEAN CORPUSCULAR HGB CONC 32.6 g/dl (32.0-36.5); MEAN CORPUSCULAR VOLUME 92.6 fl (80.0-96.0); PLATELET COUNT, AUTOMATED 174 10^3/uL (150-450); RED BLOOD COUNT 5.64 10^6/uL (4.00-5.40); WHITE BLOOD COUNT 9.2 10^3/uL (4.0-10.0)
--- NOTE | 2019-03-15 18:16 | REPVR ---
PROCEDURE INFORMATION: Exam: CT Abdomen and pelvis without contrast Exam date and time: 03/15/2019 5:47 PM Clinical history: 53 years old, female; Abdominal pain; Localized; Left upper quadrant (luq); Additional info: Luq pain, known abdominal cyst TECHNIQUE: Imaging protocol: Computed tomography of the abdomen and pelvis without contrast. Radiation optimization: All CT scans at this facility use at least one of these dose optimization techniques: automated exposure control; mA and/or kV adjustment per patient size (includes targeted exams where dose is matched to clinical indication); or iterative reconstruction. COMPARISON: CT ABD PELVIS W/O CONTRAST 02/06/2019 7:49 AM FINDINGS: Liver: There are cysts in the liver measuring up to 2.4 cm in the left lobe. No complex features demonstrated. Findings are stable. Gallbladder and bile ducts: There has been a cholecystectomy. Pancreas: Normal. No ductal dilation. Spleen: Normal. No splenomegaly. Adrenals: Normal. No mass. Kidneys and ureters: Bilaterally enlarged multicystic kidneys with extensive distortion of the renal parenchymal architecture, findings consistent with polycystic kidney disease. Several cysts contain calcification. Stomach and bowel: There is increased feces in the right and transverse colon consistent with constipation. Appendix: No evidence of appendicitis. Intraperitoneal space: Unremarkable. No free air. No significant fluid collection. Vasculature: Unremarkable. No abdominal aortic aneurysm. Lymph nodes: Unremarkable. No enlarged lymph nodes. Bladder: Unremarkable as visualized. Reproductive: There has been a hysterectomy. Cyst in the left lower quadrant measures 5.3 x 4.8 cm, stable in size in comparison to the prior study. Cyst likely of left ovarian origin. No significant solid components demonstrated. Correlation with ultrasound to exclude any complex features suggestive. Bones/joints: Severe central spinal stenosis L4-5. Soft tissues: Unremarkable. IMPRESSION: 1. There are cysts in the liver measuring up to 2.4 cm in the left lobe. No complex features demonstrated. Findings are stable. 2. There has been a cholecystectomy. 3. Bilaterally enlarged multicystic kidneys with extensive distortion of the renal parenchymal architecture, findings consistent with polycystic kidney disease. No significant interval change. 4. There has been a hysterectomy. 5. Cyst in the left lower quadrant measures 5.3 x 4.8 cm, stable in size in comparison to the prior study. Cyst likely of left ovarian origin. No significant solid components demonstrated. Correlation with ultrasound to exclude any complex features suggestive. 6. There is increased feces in the right and transverse colon consistent with constipation. COMMENT: Consistent with the [employer]'s Incidental Findings Committee Report (J [employer]iol 2010): Unless the patient's specific circumstances suggest otherwise, any liver lesion 0.5 cm or less, any cystic kidney lesion less than 1.0 cm, and/or any adrenal lesion 1.0 cm or less not otherwise characterized in this report as possessing suspicious or indeterminate imaging features is/are highly likely to be benign and do not require follow-up imaging or biopsy. Electronically signed by: Nathan Brewer On 03/15/2019 18:16:25 PM
[2019-03-15 18:26] LABS: ALBUMIN 3.2 GM/DL (3.2-5.2); ALT/SGPT 39 U/L (12-78); BILIRUBIN,DIRECT < 0.1 MG/DL (0.0-0.2); BILIRUBIN,TOTAL 0.5 MG/DL (0.2-1.0); LIPASE 204 U/L (73-393); TOTAL PROTEIN 6.9 GM/DL (6.4-8.2)
[2019-03-15 19:06] VITALS: BP 133/76
== END 2019-03-15 19:15 | disposition home or self-care (01) ==
LOC: M ED 15:21
DX: N83.202 Unspecified ovarian cyst, left side (principal); E11.9 Type 2 diabetes mellitus without complications; E07.9 Disorder of thyroid, unspecified; Q61.3 Polycystic kidney, unspecified; Z87.42 Personal history of other diseases of the female genital tract; Z87.442 Personal history of urinary calculi; F17.210 Nicotine dependence, cigarettes, uncomplicated; Z79.899 Other long term (current) drug therapy

== ENCOUNTER → 2019-04-06 | Outpatient (REF) | payer BC ==
[~2019-04-06] MED LIST changes: +GLIM1TAB2 PO; +MONT10TA2
== END ==
LOC: M LAB REF 11:29
PROVIDERS: ATTEND Physician Assistant Medical
DX: R30.0 Dysuria (principal)

== ENCOUNTER → 2019-04-21 | Outpatient (REF) | payer BC ==
[2019-04-21 23:17] LABS: APPEARANCE, URINE HAZY (CLEAR); BACTERIA, URINE AUTO NEGATIVE (NEGATIVE); BILIRUBIN, URINE AUTO NEGATIVE (NEGATIVE); BLOOD, URINE BLOOD NEGATIVE (NEGATIVE); COLOR, URINE YELLOW (YELLOW); GLUCOSE, URINE (UA) AUTO NEGATIVE (NEGATIVE); KETONE, URINE AUTO NEGATIVE (NEGATIVE); LEUKOCYTE ESTERASE, URINE AUTO NEGATIVE (NEGATIVE); NITRITE, URINE AUTO NEGATIVE (NEGATIVE); PROTEIN, URINE AUTO 1+ mg/dL (NEGATIVE); RBC, URINE AUTO 0 /HPF (0-3); SPECIFIC GRAVITY URINE AUTO 1.011 (1.002-1.035); SQUAMOUS EPITHELIAL CELL UR AU 5 /HPF (0-6); UROBILINOGEN, URINE AUTO 0.2 mg/dL (0.0-2.0); WBC, URINE AUTO 1 /HPF (0-3)
== END ==
LOC: M LAB REF 17:39
PROVIDERS: ATTEND Physician Assistant
DX: N39.0 Urinary tract infection, site not specified (principal)

== ENCOUNTER 2019-06-12 09:25 | Day surgery (SDC) | payer BC ==
[~2019-06-12] VITALS: Ht 162.6 cm; Wt 136.3 kg
[~2019-06-12 09:25] MED LIST changes: +BUPIVACAINE/EPIN 0.25% 30 ML VIAL As Ordered ONE; -BUPR300T34; +BUPR300T34 PO; -CALC1CAP31; +CALC1CAP31 PO; +FISH1000 PO; +LIDOCAINE 1% MDV 20ML VIAL SQ PRN; +LIDOCAINE 2% INJ 100 MG/5 ML SDV (FOR ANES.) As Ordered ONE; +LR 1,000 ML IV ONE; +MIDAZOLAM INJ 2 MG/2 ML VIAL (J2250) As Ordered ONE; -MONT10TA2; +MONT10TA2 PO; +PROPOFOL 200 MG/20 ML VIAL As Ordered ONE; +ROCURONIUM BROMIDE 50 MG/5 ML VIAL As Ordered ONE; -SIMV20TA2 PO; +SIMV20TA22 PO; -SIMV40TA2 PO; +SIMV40TA20 PO; +ceFAZolin SOD 2 GM in IV 1 EA IV ONE; +fentaNYL 250 MCG/5 ML INJECTION (J3010) As Ordered ONE
[2019-06-12] MEDS ORDERED: HumaLOG INSULIN (NovoLOG) PER UNIT As Ordered ONE (10:32)
[2019-06-12] MEDS ORDERED: HumaLOG INSULIN (NovoLOG) PER UNIT SC ONE (10:45)
[2019-06-12] MEDS ORDERED: ACETAMINOPHEN 1000MG 100ML IV BTL (OFIRMEV) (J0131 PER 10MG) As Ordered ONE (11:57)
[2019-06-12] MEDS ORDERED: LABETALOL HCL 100 MG/20 ML VIAL As Ordered ONE (12:14)
[2019-06-12] MEDS ORDERED: ONDANSETRON 4MG/2ML VIAL (J2405) As Ordered ONE (12:27)
[2019-06-12] MEDS ORDERED: KETOROLAC 60 MG/2 ML VIAL (J1885) As Ordered ONE (12:27)
[2019-06-12] MEDS ORDERED: METOCLOPRAMIDE INJ 10MG/2ML VIAL (J2765) As Ordered ONE (12:27)
[2019-06-12] MEDS ORDERED: SUGAMMADEX SODIUM 500 MG/5 ML VIAL (BRIDION) As Ordered ONE (12:30)
[2019-06-12] MEDS ORDERED: MORPHINE 2 MG/ML 1ML VIAL (J2270) IV PRN (13:15)
[2019-06-12] MEDS ORDERED: METOCLOPRAMIDE INJ 10MG/2ML VIAL (J2765) IV PRN (13:15)
[2019-06-12] MEDS ORDERED: ONDANSETRON 4MG/2ML VIAL (J2405) IV PRN (13:15)
[2019-06-12] MEDS ORDERED: oxyCODONE 5MG TAB PO PRN (13:15)
[2019-06-12] MEDS ORDERED: LR 1,000 ML IV SCH (13:15)
[2019-06-12] MEDS ORDERED: fentaNYL 100 MCG/2 ML INJECTION (J3010) IV PRN (13:15)
[2019-06-12] MEDS ORDERED: NORCO, ANEXSIA 5/325MG TABLET (HYDROcodone/ACETAMINOPHEN) PO PRN (13:15)
[2019-06-12 14:50] VITALS: BP 120/66
--- NOTE | 2019-06-12 18:03 | RO ---
DATE OF PROCEDURE: 06/12/2019 PREOPERATIVE DIAGNOSIS: Left lower quadrant pain. POSTOPERATIVE DIAGNOSIS: Left lower quadrant pain secondary to adhesions in the left lower quadrant and large left pelvic cyst. PROCEDURE: Robotic lysis of adhesions along with excision of a left pelvic cyst. SURGEON: Dr. Goins CAGE CLERK: None. ANESTHESIA: General. ESTIMATED BLOOD LOSS: 5 COMPLICATIONS: None. INDICATIONS FOR PROCEDURE: The patient is a 53-year-old female status post hysterectomy and left oophorectomy presents with persistent left lower quadrant pain. She had a left pelvic cyst on CT but IR was unable to drain it. They feel that this cyst may the cause of her pains. Therefore recommendation was to proceed with diagnostic laparoscopy, possible removal of cyst. Risks, benefits procedure not limited but including bleeding, infection, persistent pain, hernia formation, damage to surrounding structure need for further surgery discussed in detail with the patient. Informed consent was obtained procedure was planned. PROCEDURE: The patient brought back to operating room seven after sufficient sedation. The abdomen was sterilely prepped and draped. Next time-out was done confirm proper patient and proper procedure. Following that 8 mm incision made in left midabdomen. A Veress needle was then inserted and the abdomen was insufflated to 50 mmHg. Veress needle was then removed 8 mm robotic port was then placed in the abdomen was examined. There were adhesions, they were obvious in left lower quadrant very dense adhesions without any bowel in them but they are extremely vascular. Two more ports were then placed, one in the mid abdomen and one on the right side robot was then docked to the port. Next from the console I used a combination of bipolar and monopolar cautery. I was able to dissect through all of the adhesions and take those down. No signs of any hernia was seen. Once that was completed the patient is placed in Trendelenburg position. There is a large cystic ovary identified in the right side. On the left I was to dissect the sigmoid colon laterally and mobilize it towards the midline. Posterior to the sigmoid colon about the level the pelvic brim was very large cystic structure about 8-10 cm in size. I was able to dissect around this circumferentially and completely remove it and once it was removed was placed inside of 5 mm EndoCatch bag. The cyst was popped and then the cyst was able to be removed through an 8 mm port site. The fluid that was leaked inside the abdomen was drained out of the pelvis using the suction tip. The abdomen was then desufflated and ports removed. Skin incisions closed 4-0 Vicryl subcuticular sutures. The abdomen cleaned and dried. Steri-Strips, 4x4, and tape were applied thus ending procedure.
== END 2019-06-12 15:03 | disposition home or self-care (01) ==
LOC: M SDC 09:25
PROVIDERS: ATTEND Surgery
DX: K66.0 Peritoneal adhesions (postprocedural) (postinfection) (principal); N94.89 Other specified conditions associated with female genital organs and menstrual cycle; E11.9 Type 2 diabetes mellitus without complications; E03.9 Hypothyroidism, unspecified; E78.5 Hyperlipidemia, unspecified; K21.9 Gastro-esophageal reflux disease without esophagitis; F17.210 Nicotine dependence, cigarettes, uncomplicated; M12.9 Arthropathy, unspecified; Q61.2 Polycystic kidney, adult type; R29.898 Other symptoms and signs involving the musculoskeletal system; E66.9 Obesity, unspecified; Z79.899 Other long term (current) drug therapy; Z90.710 Acquired absence of both cervix and uterus; Z68.43 Body mass index [BMI] 50.0-59.9, adult
CPT/HCPCS: 58662; 88305; J0131; J0690; J2250; J2405; J2765; J3010

== ENCOUNTER → 2019-07-20 | Outpatient (REF) | payer BC ==
[~2019-07-20] MED LIST changes: -BUPIVACAINE/EPIN 0.25% 30 ML VIAL As Ordered ONE; -BUPR300T34 PO; +BUPR300T92 PO; -GLIM1TAB2 PO; +GLIM1TAB4 PO; -LIDOCAINE 1% MDV 20ML VIAL SQ PRN; -LIDOCAINE 2% INJ 100 MG/5 ML SDV (FOR ANES.) As Ordered ONE; -LR 1,000 ML IV ONE; -MIDAZOLAM INJ 2 MG/2 ML VIAL (J2250) As Ordered ONE; -PROPOFOL 200 MG/20 ML VIAL As Ordered ONE; -ROCURONIUM BROMIDE 50 MG/5 ML VIAL As Ordered ONE; -ceFAZolin SOD 2 GM in IV 1 EA IV ONE; -fentaNYL 250 MCG/5 ML INJECTION (J3010) As Ordered ONE
[2019-07-20 12:18] LABS: INFLUENZA A AMPLIFICATION NEGATIVE (NEGATIVE); INFLUENZA B AMPLIFICATION NEGATIVE (NEGATIVE)
== END ==
LOC: M LAB REF 11:22
PROVIDERS: ATTEND Physician Assistant
DX: J11.1 Influenza due to unidentified influenza virus with other respiratory manifestations (principal)

== ENCOUNTER 2019-08-18 09:48 | Emergency (ER) | payer BC ==
[~2019-08-18] VITALS: Ht 162.6 cm; Wt 137.7 kg
[~2019-08-18 09:48] MED LIST changes: -MONT10TA2 PO; +MONT10TA4 PO
[2019-08-18 10:29] LABS: BASO # 0.1 10^3/uL (0.0-0.2); BASO % 0.8 % (0.0-1.0); EOS # 0.3 10^3/uL (0.0-0.5); EOS % 3.6 % (0.0-3.0); HEMATOCRIT 53.1 % (36.0-47.0); HEMOGLOBIN 17.1 g/dl (12.0-15.5); LYMPH # 4.2 10^3/uL (1.5-5.0); LYMPH % 50.3 % (24.0-44.0); MEAN CORPUSCULAR HEMOGLOBIN 29.5 pg (27.0-33.0); MEAN CORPUSCULAR HGB CONC 32.2 g/dl (32.0-36.5); MEAN CORPUSCULAR VOLUME 91.6 fl (80.0-96.0); MONO # 0.5 10^3/uL (0.0-0.8); MONO % 5.8 % (0.0-5.0); NEUTROPHILS # 3.3 10^3/uL (1.5-8.5); NEUTROPHILS % 39.4 % (36.0-66.0); PLATELET COUNT, AUTOMATED 181 10^3/uL (150-450); WHITE BLOOD COUNT 8.3 10^3/uL (4.0-10.0)
[2019-08-18 10:33] LABS: APPEARANCE, URINE CLEAR (CLEAR); BACTERIA, URINE AUTO 1+ (NEGATIVE); BILIRUBIN, URINE AUTO NEGATIVE (NEGATIVE); BLOOD, URINE BLOOD NEGATIVE (NEGATIVE); COLOR, URINE YELLOW (YELLOW); GLUCOSE, URINE (UA) AUTO NEGATIVE (NEGATIVE); KETONE, URINE AUTO NEGATIVE (NEGATIVE); LEUKOCYTE ESTERASE, URINE AUTO NEGATIVE (NEGATIVE); MUCUS, URINE SMALL (NEGATIVE); NITRITE, URINE AUTO NEGATIVE (NEGATIVE); PROTEIN, URINE AUTO NEGATIVE (NEGATIVE); RBC, URINE AUTO 3 /HPF (0-3); SPECIFIC GRAVITY URINE AUTO 1.006 (1.002-1.035); SQUAMOUS EPITHELIAL CELL UR AU 3 /HPF (0-6); UROBILINOGEN, URINE AUTO 0.2 mg/dL (0.0-2.0); WBC, URINE AUTO 1 /HPF (0-3)
[2019-08-18 10:58] LABS: CALCIUM LEVEL 8.9 MG/DL (8.5-10.1); CREATININE FOR GFR 2.27 MG/DL (0.55-1.30); GLOMERULAR FILTRATION RATE 24.2 (>51); POTASSIUM SERUM 4.6 MEQ/L (3.5-5.1)
--- NOTE | 2019-08-18 12:19 | REP ---
CT ABDOMEN AND PELVIS WITHOUT IV OR ORAL CONTRAST: HISTORY: Left flank pain, rule out stone. Comparison CT study March 15, 2019. CT FINDINGS: Preliminary digital bisque cleaner radiograph is unremarkable. There are clips in right upper quadrant. The lung bases are essentially clear. There are multiple small cysts scattered about the liver. There is polycystic kidney disease with multiple cysts enlarging the kidneys bilaterally unchanged from comparison study. Several of these show calcifications. There is no evidence of hydronephrosis. There is an intrarenal calculus in the lower pole right kidney which measures 6 mm in greatest diameter. This is unchanged. There is an intrarenal calculus in the lower pole left kidney measuring 4 mm. No left-sided hydronephrosis. No ureteral calculus or bladder calculus is observed. There is diverticulosis affecting the left colon without CT evidence of diverticulitis. A normal appendix is seen in the right lower quadrant. Small and large bowel loops are unremarkable. No abdominal wall defect is seen. No bony destructive lesion is appreciated. IMPRESSION: Adult polycystic kidney disease again noted. There is bilateral intrarenal nephrolithiasis. No ureteral calculus or hydronephrosis is seen. The patient status post cholecystectomy. Uterus is surgically absent as well. No acute intra-abdominal abnormality seen. Electronically Signed by Michel Zaidi MD 08/18/2019 06:39 P
[2019-08-18 13:06] VITALS: BP 140/76
== END 2019-08-18 13:18 | disposition home or self-care (01) ==
LOC: M ED 09:48
DX: R10.9 Unspecified abdominal pain (principal); E11.9 Type 2 diabetes mellitus without complications; E78.5 Hyperlipidemia, unspecified; Z87.442 Personal history of urinary calculi; Z87.448 Personal history of other diseases of urinary system; F17.200 Nicotine dependence, unspecified, uncomplicated; Q61.2 Polycystic kidney, adult type; N20.0 Calculus of kidney; Z79.84 Long term (current) use of oral hypoglycemic drugs; Z79.899 Other long term (current) drug therapy; Z91.018 Allergy to other foods

== ENCOUNTER → 2020-01-23 | Outpatient (CLI) | payer BC ==
[2020-02-25 10:49] LABS: HEMATOCRIT 51.1 % (36.0-47.0); HEMOGLOBIN 16.5 g/dl (12.0-15.5); MEAN CORPUSCULAR HEMOGLOBIN 29.6 pg (27.0-33.0); MEAN CORPUSCULAR HGB CONC 32.3 g/dl (32.0-36.5); MEAN CORPUSCULAR VOLUME 91.6 fl (80.0-96.0); PLATELET COUNT, AUTOMATED 170 10^3/uL (150-450); RED BLOOD COUNT 5.58 10^6/uL (4.00-5.40); WHITE BLOOD COUNT 9.3 10^3/uL (4.0-10.0)
[2020-03-08 14:59] LABS: ALBUMIN 3.5 GM/DL (3.2-5.2); BILIRUBIN,TOTAL 0.4 MG/DL (0.2-1.0); CALCIUM LEVEL 8.8 MG/DL (8.5-10.1); CHOLESTEROL RISK RATIO 3.95 (<5); CREATININE FOR GFR 2.22 MG/DL (0.55-1.30); FREE T4 1.05 NG/DL (0.76-1.46); GLOMERULAR FILTRATION RATE 24.7 (>51); HEMOGLOBIN A1c 7.9 %; POTASSIUM SERUM 4.8 MEQ/L (3.5-5.1); THYROID STIMULATING HORMONE 6.19 uIU/ML (0.358-3.740); TOTAL PROTEIN 6.8 GM/DL (6.4-8.2)
== END ==
LOC: M LAB 09:01
PROVIDERS: ATTEND Nurse Practitioner Family
DX: I10 Essential (primary) hypertension (principal); E78.2 Mixed hyperlipidemia; E11.9 Type 2 diabetes mellitus without complications; E03.9 Hypothyroidism, unspecified

== ENCOUNTER → 2020-03-27 | Outpatient (REF) | payer BC ==
[2020-03-27 17:28] LABS: BASO # 0.1 10^3/uL (0.0-0.2); EOS # 0.4 10^3/uL (0.0-0.5); EOS % 5.1 % (0.0-3.0); HEMATOCRIT 52.1 % (36.0-47.0); HEMOGLOBIN 16.5 g/dl (12.0-15.5); LYMPH # 3.2 10^3/uL (1.5-5.0); LYMPH % 40.3 % (24.0-44.0); MEAN CORPUSCULAR HEMOGLOBIN 29.2 pg (27.0-33.0); MEAN CORPUSCULAR HGB CONC 31.7 g/dl (32.0-36.5); MONO # 0.5 10^3/uL (0.0-0.8); MONO % 6.1 % (0.0-5.0); NEUTROPHILS # 3.8 10^3/uL (1.5-8.5); NEUTROPHILS % 47.4 % (36.0-66.0); PLATELET COUNT, AUTOMATED 143 10^3/uL (150-450); RED BLOOD COUNT 5.66 10^6/uL (4.00-5.40); WHITE BLOOD COUNT 7.9 10^3/uL (4.0-10.0)
[2020-03-27 17:33] LABS: MONO SCRN NEGATIVE (NEGATIVE)
[2020-03-27 17:40] LABS: FREE T4 1.23 NG/DL (0.76-1.46)
[2020-03-27 17:42] LABS: TOTAL 25(OH) VITAMIN D 42.7 NG/ML (30.0-100.0)
== END ==
LOC: M LAB REF 16:41
PROVIDERS: ATTEND Physician Assistant
DX: R53.83 Other fatigue (principal)

== ENCOUNTER → 2020-06-28 | Outpatient (CLI) | payer BC ==
[~2020-06-28] MED LIST changes: +BACT800T5 PO; +MONT10TA10 PO; -MONT10TA4 PO
[2020-06-28 11:07] LABS: HEMATOCRIT 49.1 % (36.0-47.0); HEMOGLOBIN 15.8 g/dl (12.0-15.5); MEAN CORPUSCULAR HEMOGLOBIN 29.6 pg (27.0-33.0); MEAN CORPUSCULAR HGB CONC 32.2 g/dl (32.0-36.5); MEAN CORPUSCULAR VOLUME 91.9 fl (80.0-96.0); PLATELET COUNT, AUTOMATED 161 10^3/uL (150-450); RED BLOOD COUNT 5.34 10^6/uL (4.00-5.40); WHITE BLOOD COUNT 8.4 10^3/uL (4.0-10.0)
[2020-06-28 11:32] LABS: HEMOGLOBIN A1c 7.7 %
[2020-06-28 11:52] LABS: ALBUMIN 3.2 GM/DL (3.2-5.2); BILIRUBIN,TOTAL 0.6 MG/DL (0.2-1.0); CALCIUM LEVEL 9.1 MG/DL (8.5-10.1); CHOLESTEROL RISK RATIO 5.235 (<5); CREATININE FOR GFR 2.77 MG/DL (0.55-1.30); GLOMERULAR FILTRATION RATE 19.1 (>51); POTASSIUM SERUM 4.4 MEQ/L (3.5-5.1); TOTAL PROTEIN 6.5 GM/DL (6.4-8.2)
== END ==
LOC: M LAB 10:35
PROVIDERS: ATTEND Nurse Practitioner Family
DX: E55.9 Vitamin D deficiency, unspecified (principal); I10 Essential (primary) hypertension; E78.5 Hyperlipidemia, unspecified; E11.9 Type 2 diabetes mellitus without complications

== ENCOUNTER 2020-07-16 08:03 | Emergency (ER) | payer BC ==
[~2020-07-16] VITALS: Ht 162.6 cm; Wt 140.8 kg
[~2020-07-16 08:03] MED LIST changes: -BACT800T5 PO; -MONT10TA10 PO; +MONT5TAB2 PO
[2020-07-16 08:05] VITALS: BP 122/70
--- OUTSIDE RECORDS SUMMARY | 2020-07-16 08:15 | CCD ---
Author Organization Unknown Address [address] [place] [address] Phone [phone] Care Team Providers Care Sizing End Bander Name Role Phone Devin Foster Unavailable Unavailable Allergies None recorded. Medications Name Status Start Date Stop Date amoxicillin 500 mg capsule TAKE ONE CAPSULE BY MOUTH THREE TIMES A DAY FOR 10 DAYS Active Not available amoxicillin 875 mg tablet TAKE ONE TABLET BY MOUTH EVERY 12 HOURS FOR 7 DAYS Active Not available amoxicillin 875 mg-potassium clavulanate 125 mg tablet Active Not available benzonatate 200 mg capsule TAKE ONE CAPSULE BY MOUTH THREE TIMES A DAY FOR 7 DAYS Active Not available bupropion HCl XL 300 mg 24 hr tablet, extended release Active Not available calcitriol 0.25 mcg capsule TAKE ONE CAPSULE BY MOUTH EVERY DAY Active Not available cefdinir 300 mg capsule TAKE ONE CAPSULE BY MOUTH EVERY 12 HOURS FOR 10 DAYS Active Not available Combigan 0.2 %-0.5 % eye drops INSTILL ONE DROP IN EACH EYE TWICE A DAY Active Not available ezetimibe 10 mg tablet TAKE ONE TABLET BY MOUTH EVERY DAY Active Not available furosemide 20 mg tablet TAKE TWO TABLETS BY MOUTH EVERY MORNING AND 1 IN THE EVENING Active Not available hydroxyzine HCl 25 mg tablet TAKE ONE TABLET BY MOUTH EVERY DAY Active Not available latanoprost 0.005 % eye drops INSTILL ONE DROP IN EACH EYE EVERY EVENING Active Not available levothyroxine 50 mcg tablet TAKE ONE TABLET BY MOUTH EVERY DAY Active Not available levothyroxine 75 mcg tablet TAKE ONE TABLET BY MOUTH ONCE DAILY Active Not available loratadine 10 mg tablet TAKE ONE TABLET BY MOUTH EVERY DAY Active Not available montelukast 10 mg tablet TAKE ONE TABLET BY MOUTH EVERY DAY AT BEDTIME Active Not available ondansetron HCl 4 mg tablet TAKE ONE TABLET BY MOUTH 6 TIMES PER DAY NEEDED FOR NAUSEA Active Not available potassium citrate ER 15 mEq (1,620 mg) t ablet,extended release TAKE ONE TABLET BY MOUTH TWICE A DAY Active No t available prednisone 20 mg tablet TAKE ONE TABLET BY MOUTH EVERY DAY Active Not available pv allergy relief nasal decong TAKE ONE TABLET BY MOUTH EVERY DAY NEEDED FOR CONGESTION Active Not available simvastatin 40 mg tablet Active Not jessi ilable Vitamin D2 1,250 mcg (50,000 unit) capsu le TAKE ONE TABLET BY MOUTH ONCE A MONTH Active N ot available Problems None recorded. Procedures None recorded. Results Lab Results None recorded. Past Encounters 06/19/2020 SARS-CoV-2 Vaccination Devin Foster MD: [address] [place] [phone], Ph. Social History None recorded. Vaccine List Vaccine Type COVID-19, mRNA, LNP-S, PF, 100 mcg/0.5 m L dose .5 mL Plan of Care Reminders Provider Appointments None recorded. Lab None recorded. Referral None recorded. Procedures None recorded. Surgeries None recorded. Imaging None recorded. Vitals None recorded.
--- OUTSIDE RECORDS SUMMARY | 2020-07-16 08:15 | CCD ---
Author Organization Unknown Address [address] [place] [address] Phone [phone] Care Team Providers Care Advertising Sales Manager Name Role Phone Devin Foster Unavailable Unavailable [...] Encounters 06/19/2020 SARS-CoV-2 Vaccination Devin Foster MD: [address] [place] [phone], Ph. Social History None recorded. Vaccine List Vaccine Type COVID-19, mRNA, LNP-S, PF, 100 mcg/0.5 m L dose .5 mL Plan of Care Reminders Provider Appointments None recorded. Lab None recorded. Referral None recorded. Procedures None recorded. Surgeries None recorded. Imaging None recorded. Vitals None recorded.
--- OUTSIDE RECORDS SUMMARY | 2020-07-16 08:16 | CCD ---
Author Author [facility] Organization [facility] Address Unknown Phone Unavailable Care Team Providers Care Pigment Weigher Name Role Phone Virgilio Foster MD Unavailable Unavailable Virgilio Foster MD Unavailable Unavailable Virgilio Foster MD Unavailable Unavailable Virgilio Foster MD Unavailable Unavailable Vigrilio Foster MD Unavailable Unavailable Virgilio Foster MD Unavailable Unavailable Virgilio Foster MD Unavailable Unavailable Virgilio Foster MD Unavailable Unavailable Virgilio Foster MD Unavailable Unavailable Virgilio Foster MD Unavailable Unavailable Virgilio Foster MD Unavailable Unavailable Virgilio Foster MD Unavailable Unavailable Virgilio Foster MD Unavailable Unavailable Virgilio Foster MD Unavailable Unavailable Virgilio Foster MD Unavailable Unavailable Virgilio Foster MD Unavailable Unavailable Virgilio Foster MD Unavailable Unavailable Virgilio Foster MD Unavailable Unavailable Virgilio Foster MD Unavailable Unavailable Virgilio Foster MD Unavailable Unavailable Virgilio Foster MD Unavailable Unavailable Virgilio Foster MD Unavailable Unavailable Virgilio Foster MD Unavailable Unavailable Virgilio Foster MD Unavailable Unavailable Virgilio Foster MD Unavailable Unavailable Virgilio Foster MD Unavailable Unavailable Virgilio Foster MD Unavailable Unavailable Virgilio Foster MD Unavailable Unavailable Virgilio Foster MD Unavailable Unavailable Virgilio Foster MD Unavailable Unavailable Virgilio Foster MD Unavailable Unavailable Virgilio Foster MD Unavailable Unavailable Virgilio Foster MD Unavailable Unavailable Virgilio Foster MD Unavailable Unavailable Virgilio Foster MD Unavailable Unavailable Virgilio Foster MD Unavailable Unavailable Virgilio Foster MD Unavailable Unavailable Virgilio Foster MD Unavailable Unavailable Virgilio Foster MD Unavailable Unavailable Virgilio Foster MD Unavailable Unavailable Virgilio Foster MD Unavailable Unavailable Virgilio Foster MD Unavailable Unavailable Virgilio Foster MD Unavailable Unavailable Virgilio Foster MD Unavailable Unavailable Virgilio Foster MD Unavailable Unavailable Virgilio Foster MD Unavailable Unavailable Virgilio Foster MD Unavailable Unavailable Virgilio Foster MD Unavailable Unavailable Virgilio Foster MD Unavailable Unavailable Virgilio Foster MD Unavailable Unavailable Virgilio Foster MD Unavailable Unavailable Virgilio Foster MD Unavailable Unavailable Virgilio Foster MD Unavailable Unavailable Virgilio Foster MD Unavailable Unavailable Virgilio Foster MD Unavailable Unavailable Virgilio Foster MD Unavailable Unavailable Virgilio Foster MD Unavailable Unavailable Virgilio Foster MD Unavailable Unavailable Virgilio Foster MD Unavailable Unavailable Virgilio Foster MD Unavailable Unavailable Virgilio Foster MD Unavailable Unavailable Virgilio Foster MD Unavailable Unavailable Virgilio Foster MD Unavailable Unavailable Virgilio Foster MD Unavailable Unavailable Virgilio Foster MD Unavailable Unavailable Virgilio Foster MD Unavailable Unavailable Virgilio Foster MD Unavailable Unavailable Virgilio Foster MD Unavailable Unavailable Virgilio Foster MD Unavailable Unavailable Virgilio Foster MD Unavailable Unavailable Virgilio Foster MD Unavailable Unavailable Virgilio Foster MD Unavailable Unavailable Virgilio Foster MD Unavailable Unavailable Virgilio Foster MD Unavailable Unavailable Virgilio Foster MD Unavailable Unavailable Virgilio Foster MD Unavailable Unavailable Virgilio Foster MD Unavailable Unavailable Virgilio Foster MD Unavailable Unavailable Virgilio Foster MD Unavailable Unavailable Virgilio Foster MD Unavailable Unavailable Virgilio Foster MD Unavailable Unavailable Virgilio Foster MD Unavailable Unavailable Virgilio Foster MD Unavailable Unavailable Virgilio Foster MD Unavailable Unavailable Virgilio Foster MD Unavailable Unavailable Virgilio Foster MD Unavailable Unavailable Virgilio Foster MD Unavailable Unavailable Virgilio Foster MD Unavailable Unavailable Virgilio Foster MD Unavailable Unavailable KIRSCHMAN, L BRODERICK CATERPILLAR DRIVER Unavailable Unavailable KIRSCHMAN, L BRODERICK CATERPILLAR DRIVER Unavailable Unavailable KIRSCHMAN, L BRODERICK CATERPILLAR DRIVER Unavailable Unavailable KIRSCHMAN, L BRODERICK CATERPILLAR DRIVER Unavailable Unavailable KIRSCHMAN, L BRODERICK CATERPILLAR DRIVER Unavailable Unavailable KIRSCHMAN, L BRODERICK CATERPILLAR DRIVER Unavailable Unavailable KIRSCHMAN, L BRODERICK CATERPILLAR DRIVER Unavailable Unavailable KIRSCHMAN, L BRODERICK CATERPILLAR DRIVER Unavailable Unavailable KIRSCHMAN, L BRODERICK CATERPILLAR DRIVER Unavailable Unavailable KIRSCHMAN, L BRODERICK CATERPILLAR DRIVER Unavailable Unavailable KIRSCHMAN, L BRODERICK CATERPILLAR DRIVER Unavailable Unavailable KIRSCHMAN, L BRODERICK CATERPILLAR DRIVER Unavailable Unavailable KIRSCHMAN, L BRODERICK CATERPILLAR DRIVER Unavailable Unavailable KIRSCHMAN, L BRODERICK CATERPILLAR DRIVER Unavailable Unavailable KIRSCHMAN, L BRODERICK CATERPILLAR DRIVER Unavailable Unavailable KIRSCHMAN, L BRODERICK CATERPILLAR DRIVER Unavailable Unavailable KIRSCHMAN, L BRODERICK CATERPILLAR DRIVER Unavailable Unavailable KIRSCHMAN, L BRODERICK CATERPILLAR DRIVER Unavailable Unavailable KIRSCHMAN, L BRODERICK CATERPILLAR DRIVER Unavailable Unavailable KIRSCHMAN, L BRODERICK CATERPILLAR DRIVER Unavailable Unavailable KIRSCHMAN, L BRODERICK CATERPILLAR DRIVER Unavailable Unavailable KIRSCHMAN, L BRODERICK CATERPILLAR DRIVER Unavailable Unavailable KIRSCHMAN, L BRODERICK CATERPILLAR DRIVER Unavailable Unavailable KIRSCHMAN, L BRODERICK CATERPILLAR DRIVER Unavailable Unavailable KIRSCHMAN, L BRODERICK CATERPILLAR DRIVER Unavailable Unavailable KIRSCHMAN, L BRODERICK CATERPILLAR DRIVER Unavailable Unavailable KIRSCHMAN, L BRODERICK CATERPILLAR DRIVER Unavailable Unavailable KIRSCHMAN, L BRODERICK CATERPILLAR DRIVER Unavailable Unavailable KIRSCHMAN, L BRODERICK CATERPILLAR DRIVER Unavailable Unavailable KIRSCHMAN, L BRODERICK CATERPILLAR DRIVER Unavailable Unavailable KIRSCHMAN, L BRODERICK CATERPILLAR DRIVER Unavailable Unavailable KIRSCHMAN, L BRODERICK CATERPILLAR DRIVER Unavailable Unavailable KIRSCHMAN, L BRODERICK CATERPILLAR DRIVER Unavailable Unavailable KIRSCHMAN, L BRODERICK CATERPILLAR DRIVER Unavailable Unavailable KIRSCHMAN, L BRODERICK CATERPILLAR DRIVER Unavailable Unavailable KIRSCHMAN, L BRODERICK CATERPILLAR DRIVER Unavailable Unavailable KIRSCHMAN, L BRODERICK CATERPILLAR DRIVER Unavailable Unavailable KIRSCHMAN, L BRODERICK CATERPILLAR DRIVER Unavailable Unavailable KIRSCHMAN, L BRODERICK CATERPILLAR DRIVER Unavailable Unavailable KIRSCHMAN, L BRODERICK CATERPILLAR DRIVER Unavailable Unavailable KIRSCHMAN, L BRODERICK CATERPILLAR DRIVER Unavailable Unavailable KIRSCHMAN, L BRODERICK CATERPILLAR DRIVER Unavailable Unavailable KIRSCHMAN, L BRODERICK CATERPILLAR DRIVER Unavailable Unavailable KIRSCHMAN, L BRODERICK CATERPILLAR DRIVER Unavailable Unavailable KIRSCHMAN, L BRODERICK CATERPILLAR DRIVER Unavailable Unavailable KIRSCHMAN, L BRODERICK CATERPILLAR DRIVER Unavailable Unavailable KIRSCHMAN, L BRODERICK CATERPILLAR DRIVER Unavailable Unavailable KIRSCHMAN, L BRODERICK CATERPILLAR DRIVER Unavailable Unavailable KIRSCHMAN, L BRODERICK CATERPILLAR DRIVER Unavailable Unavailable KIRSCHMAN, L BRODERICK CATERPILLAR DRIVER Unavailable Unavailable KIRSCHMAN, L BRODERICK CATERPILLAR DRIVER Unavailable Unavailable Re-disclosure Warning The records that you are about to access may contain information from federally-assisted alcohol or drug abuse programs. If such information is present, then the following federally mandated warning applies: This information has been disclosed to you from records protected by federal confidentiality rules (42 CFR part 2). The federal rules prohibit you from making any further disclosure of this information unless further disclosure is expressly permitted by the written consent of the person to whom it pertains or as otherwise permitted by 42 CFR part 2. A general authorization for the release of medical or other information is NOT sufficient for this purpose. The Federal rules restrict any use of the information to criminally investigate or prosecute any alcohol or drug abuse patient.The records that you are about to access may contain highly sensitive health information, the redisclosure of which is protected by Article 27-F of the [facility] Public Health law. If you continue you may have access to information: Regarding HIV / AIDS; Provided by facilities licensed or operated by the [facility] Office of Mental Health; or Provided by the [facility] Office for People With Developmental Disabilities. If such information is present, then the following [facility] mandated warning applies: This information has been disclosed to you from confidential records which are protected by state law. State law prohibits you from making any further disclosure of this information without the specific written consent of the person to whom it pertains, or as otherwise permitted by law. Any unauthorized further disclosure in violation of state law may result in a fine or fpc sentence or both. A general authorization for the release of medical or other information is NOT sufficient authorization for further disc losure. Allergies and Adverse Reactions Type Description Substance Reaction Status Data Source(s ) Allergy to substance Allergy to substance Allergy to substance ORAL ([facility]) Allergy to substance Allergy to substance Allergy to substance CAREY ([facility]) Family History Family Member Name Family Member Gender Family Member Status Date o f Status Description Data Source(s) Unknown Male Problem MEDENT ([facility]) Unknown Male Problem MEDENT ([facility], ) Encounters Encounter Providers Location Date Indications Data Source(s ) Devin Foster MD: [address] [place] [phone], Ph. Attender: Devin Foster MD [facility] Medical 06/19/2020 12:00:00 AM EST ORAL ([facility]) Devin Foster MD: [address] [place] [phone], Ph. Attender: Devin Foster MD [facility] Medical 06/19/2020 12:00:00 AM EST ORAL ([facility]) Outpatient Referrer: BRODERICK SHIELDS NP 09/13/2019 05:13:0 0 AM EDT [facility] Outpatient Referrer: BRODERICK SHIELDS NP 08/21/2019 02:42:0 0 PM EDT [facility] Immunizations Vaccine Date Status Description Data Source(s) COVID-19, mRNA, LNP-S, PF, 100 mcg/0.5 mL dose 06/19/2020 04 :33:43 PM EST completed .5 mL ORAL ([facility]) COVID-19, mRNA, LNP-S, PF, 100 mcg/0.5 mL dose 06/19/2020 04 :33:43 PM EST completed .5 mL CAREY ([facility]) Medications Medication Brand Name Start Date Product Form Dose Route Admi nistrative Instructions Pharmacy Instructions Status Indications Reaction Description Data Source(s) 25 mg 05/03/2020 12:00:00 AM EST tablet 90 TAKE ONE TABLET BY MOUTH EVERY DAY TAKE ONE TABLET BY MOUTH EVERY DAY SOLD: 05/08/2020 [facility] 15 mEq 03/30/2020 12:00:00 AM EDT tablet extended release 180 TAKE ONE TABLET BY MOUTH TWICE A DAY TAKE ONE TABLET BY MOUTH TWICE A DAY SOLD: 04/05/2020 [facility] 15 mEq 03/30/2020 12:00:00 AM EDT tablet extended release 60 TAKE ONE TABLET BY MOUTH TWICE A DAY TAKE ONE TABLET BY MOUTH TWICE A DAY SOLD: 06/28/2020 [facility] 20 mg 02/23/2020 12:00:00 AM EDT tablet 270 TAKE TWO TABLETS BY MOUTH EVERY MORNING AND 1 IN THE EVENING TAKE TWO TABLETS BY MOUTH EVERY MORNING AND 1 IN THE EVENING SOLD: 07/10/2020 [facility] 20 mg 02/23/2020 12:00:00 AM EDT tablet 270 TAKE TWO TABLETS BY MOUTH EVERY MORNING AND 1 IN THE EVENING TAKE TWO TABLETS BY MOUTH EVERY MORNING AND 1 IN THE EVENING SOLD: 02/24/2020 [facility] ezetimibe 10 MG Oral Tablet EZETIMIBE 02/22/2020 12:00:00 AM EDT table t 30 TAKE ONE TABLET BY MOUTH EVERY DAY TAKE ONE TABLET BY MOUTH EVERY DAY SOLD: 05/24/2020 [facility] 10 mg 02/22/2020 12:00:00 AM EDT tablet 30 TAKE ONE TABLET BY MOUTH EVERY DAY TAKE ONE TABLET BY MOUTH EVERY DAY SOLD: 04/05/2020 [facility] ezetimibe 10 MG Oral Tablet EZETIMIBE 02/22/2020 12:00:00 AM EDT table t 30 TAKE ONE TABLET BY MOUTH EVERY DAY TAKE ONE TABLET BY MOUTH EVERY DAY SOLD: 02/22/2020 [facility] ezetimibe 10 MG Oral Tablet EZETIMIBE 02/22/2020 12:00:00 AM EDT table t 30 TAKE ONE TABLET BY MOUTH EVERY DAY TAKE ONE TABLET BY MOUTH EVERY DAY SOLD: 06/27/2020 [facility] montelukast 10 MG Oral Tablet MONTELUKAST SODIUM 02/07/2020 12:0 0:00 AM EDT tablet 90 TAKE ONE TABLET BY MOUTH EVERY D AY AT BEDTIME TAKE ONE TABLET BY MOUTH EVERY DAY AT BEDTIME SOLD: 05/30/2020 [facility] montelukast 10 MG Oral Tablet MONTELUKAST SODIUM 02/07/2020 12:0 0:00 AM EDT tablet 90 TAKE ONE TABLET BY MOUTH EVERY D AY AT BEDTIME TAKE ONE TABLET BY MOUTH EVERY DAY AT BEDTIME SOLD: 02/22/2020 [facility] 75 mcg 01/30/2020 12:00:00 AM EDT tablet 30 TAKE ONE TABLET BY MOUTH ONCE DAILY TAKE ONE TABLET BY MOUTH ONCE DAILY SOLD: 05/24/2020 [facility] 75 mcg 01/30/2020 12:00:00 AM EDT tablet 90 TAKE ONE TABLET BY MOUTH ONCE DAILY TAKE ONE TABLET BY MOUTH ONCE DAILY SOLD: 02/01/2020 [facility] 75 mcg 01/30/2020 12:00:00 AM EDT tablet 30 TAKE ONE TABLET BY MOUTH ONCE DAILY TAKE ONE TABLET BY MOUTH ONCE DAILY SOLD: 06/27/2020 [facility] 40 mg 01/12/2020 12:00:00 AM EDT tablet 30 TAKE ONE TABLET BY MOUTH EVERY EVENING TAKE ONE TABLET BY MOUTH EVERY EVENING SOLD: 06/22/2020 [facility] 40 mg 01/12/2020 12:00:00 AM EDT tablet 30 TAKE ONE TABLET BY MOUTH EVERY EVENING TAKE ONE TABLET BY MOUTH EVERY EVENING SOLD: 03/04/2020 [facility] 40 mg 01/12/2020 12:00:00 AM EDT tablet 30 TAKE ONE TABLET BY MOUTH EVERY EVENING TAKE ONE TABLET BY MOUTH EVERY EVENING SOLD: 04/05/2020 [facility] 40 mg 01/12/2020 12:00:00 AM EDT tablet 30 TAKE ONE TABLET BY MOUTH EVERY EVENING TAKE ONE TABLET BY MOUTH EVERY EVENING SOLD: 05/08/2020 [facility] 40 mg 01/12/2020 12:00:00 AM EDT tablet 30 TAKE ONE TABLET BY MOUTH EVERY EVENING TAKE ONE TABLET BY MOUTH EVERY EVENING SOLD: 01/12/2020 [facility] 24 HR Bupropion Hydrochloride 300 MG Extended Release Oral T ablet BUPROPION HCL 12/18/2019 12:00:00 AM EDT tablet extended release 24 hr 30 TAKE ONE TABLET BY MOUTH EVERY DAY TAKE ONE TABLET BY MOUTH EVERY DAY SOLD: 06/22/2020 [facility] 300 mg 12/18/2019 12:00:00 AM EDT tablet extended release 24 hr 30 TAKE ONE TABLET BY MOUTH EVERY DAY TAKE ONE TABLET BY MOUTH EVERY DAY SOLD: 01/26/2020 [facility] 24 HR Bupropion Hydrochloride 300 MG Extended Release Oral T ablet BUPROPION HCL 12/18/2019 12:00:00 AM EDT tablet extended release 24 hr 30 TAKE ONE TABLET BY MOUTH EVERY DAY TAKE ONE TABLET BY MOUTH EVERY DAY SOLD: 05/08/2020 [facility] 50 mcg 12/18/2019 12:00:00 AM EDT tablet 30 TAKE ONE TABLET BY MOUTH EVERY DAY TAKE ONE TABLET BY MOUTH EVERY DAY SOLD: 12/19/2019 [facility] 24 HR Bupropion Hydrochloride 300 MG Extended Release Oral T ablet BUPROPION HCL 12/18/2019 12:00:00 AM EDT tablet extended release 24 hr 30 TAKE ONE TABLET BY MOUTH EVERY DAY TAKE ONE TABLET BY MOUTH EVERY DAY SOLD: 04/05/2020 [facility] 300 mg 12/18/2019 12:00:00 AM EDT capsule 20 TAKE ONE CAPSULE BY MOUTH EVERY 12 HOURS FOR 10 DAYS TAKE ONE CAPSULE BY MOUTH EVERY 12 HOURS FOR 10 DAYS S OLD: 12/19/2019 [facility] 300 mg 12/18/2019 12:00:00 AM EDT tablet extended release 24 hr 30 TAKE ONE TABLET BY MOUTH EVERY DAY TAKE ONE TABLET BY MOUTH EVERY DAY SOLD: 12/19/2019 [facility] 50 mcg 12/18/2019 12:00:00 AM EDT tablet 30 TAKE ONE TABLET BY MOUTH EVERY DAY TAKE ONE TABLET BY MOUTH EVERY DAY SOLD: 01/26/2020 [facility] 300 mg 12/18/2019 12:00:00 AM EDT tablet extended release 24 hr 30 TAKE ONE TABLET BY MOUTH EVERY DAY TAKE ONE TABLET BY MOUTH EVERY DAY SOLD: 02/24/2020 [facility] 20 mg 12/14/2019 12:00:00 AM EDT tablet 3 TAKE ONE TABLET BY MOUTH EVERY DAY TAKE ONE TABLET BY MOUTH EVERY DAY SOLD: 12/15/2019 [facility] 10 mg 12/14/2019 12:00:00 AM EDT tablet 30 TAKE ONE TABLET BY MOUTH EVERY DAY TAKE ONE TABLET BY MOUTH EVERY DAY SOLD: 02/14/2020 [facility] 10 mg 12/14/2019 12:00:00 AM EDT tablet 30 TAKE ONE TABLET BY MOUTH EVERY DAY TAKE ONE TABLET BY MOUTH EVERY DAY SOLD: 01/12/2020 [facility] 10 mg 12/14/2019 12:00:00 AM EDT tablet 30 TAKE ONE TABLET BY MOUTH EVERY DAY TAKE ONE TABLET BY MOUTH EVERY DAY SOLD: 12/15/2019 [facility] 0.005 % 12/13/2019 12:00:00 AM EDT drops 7 INSTILL ONE DROP IN EACH EYE EVERY EVENING INSTILL ONE DROP IN EACH EYE EVERY EVENING SOLD: 12/15/2019 [facility] 0.2-0.5 % 12/13/2019 12:00:00 AM EDT drops 5 INSTILL ONE DROP IN EACH EYE TWICE A DAY INSTILL ONE DROP IN EACH EYE TWICE A DAY SOLD: 12/15/2019 [facility] 875 mg 12/05/2019 12:00:00 AM EDT tablet 14 TAKE ONE TABLET BY MOUTH EVERY 12 HOURS FOR 7 DAYS TAKE ONE TABLET BY MOUTH EVERY 12 HOURS FOR 7 DAYS GARTH [facility] 875 mg 11/28/2019 12:00:00 AM EDT tablet 14 TAKE ONE TABLET BY MOUTH EVERY 12 HOURS FOR 7 DAYS TAKE ONE TABLET BY MOUTH EVERY 12 HOURS FOR 7 DAYS GARTH [facility] 1,250 mcg (50,000 unit) 11/13/2019 12:00:00 AM EDT capsule 3 TAKE ONE TABLET BY MOUTH ONCE A MONTH TAKE ONE TABLET BY MOUTH ONCE A MONTH SOLD: 02/14/2020 [facility] 1,250 mcg (50,000 unit) 11/13/2019 12:00:00 AM EDT capsule 3 TAKE ONE TABLET BY MOUTH ONCE A MONTH TAKE ONE TABLET BY MOUTH ONCE A MONTH SOLD: 05/24/2020 [facility] 1,250 mcg (50,000 unit) 11/13/2019 12:00:00 AM EDT capsule 3 TAKE ONE TABLET BY MOUTH ONCE A MONTH TAKE ONE TABLET BY MOUTH ONCE A MONTH SOLD: 11/14/2019 [facility] 500 mg 08/30/2019 12:00:00 AM EDT capsule 30 TAKE ONE CAPSULE BY MOUTH THREE TIMES A DAY FOR 10 DAYS TAKE ONE CAPSULE BY MOUTH THREE TIMES A DAY FOR 10 DAY S SOLD: 08/30/2019 [facility] 875-125 mg 08/10/2019 12:00:00 AM EST tablet 20 TAKE ONE TABLET BY MOUTH TWICE A DAY FOR 10 DAYS WITH FOOD TAKE ONE TABLET BY MOUTH TWICE A DAY FOR 10 DAYS WITH FOOD SOLD: 08/11/2019 [facility] montelukast 10 MG Oral Tablet MONTELUKAST SODIUM 08/10/2019 12:0 0:00 AM EST tablet 90 TAKE ONE TABLET BY MOUTH AT BEDT KITTY TAKE ONE TABLET BY MOUTH AT BEDTIME SOLD: 08/11/2019 [facility] montelukast 10 MG Oral Tablet MONTELUKAST SODIUM 08/10/2019 12:0 0:00 AM EST tablet 90 TAKE ONE TABLET BY MOUTH AT BEDT KITTY TAKE ONE TABLET BY MOUTH AT BEDTIME SOLD: 11/14/2019 [facility] 4 mg 07/21/2019 12:00:00 AM EST tablet 20 TAKE ONE TABLET BY MOUTH 6 TIMES PER DAY NEEDED FOR NAUSEA TAKE ONE TABLET BY MOUTH 6 TIMES PER DAY NEEDED FOR NAUSEA SOLD: 07/21/2019 [facility] benzonatate 200 MG Oral Capsule BENZONATATE 07/21/2019 12:00:00 AM EST capsule 21 TAKE ONE CAPSULE BY MOUTH THREE TIMES A DAY FOR 7 DAYS TAKE ONE CAPSULE BY MOUTH THREE TIMES A DAY FOR 7 DAYS SOLD: 07/21/2019 [facility] Calcitriol 0.22311 MG Oral Capsule 0.25 mcg CALCITRIOL 07/17/2019 12:00:00 AM EST capsule 30 TAKE ONE CAPSULE BY MOUTH EV MARY ANN DAY TAKE ONE CAPSULE BY MOUTH EVERY DAY SOLD: 02/24/2020 [facility] Calcitriol 0.08608 MG Oral Capsule 0.25 mcg CALCITRIOL 07/17/2019 12:00:00 AM EST capsule 30 TAKE ONE CAPSULE BY MOUTH EV MARY ANN DAY TAKE ONE CAPSULE BY MOUTH EVERY DAY SOLD: 11/14/2019 [facility] Calcitriol 0.76641 MG Oral Capsule 0.25 mcg CALCITRIOL 07/17/2019 12:00:00 AM EST capsule 30 TAKE ONE CAPSULE BY MOUTH EV MARY ANN DAY TAKE ONE CAPSULE BY MOUTH EVERY DAY SOLD: 07/17/2019 [facility] Calcitriol 0.97892 MG Oral Capsule 0.25 mcg CALCITRIOL 07/17/2019 12:00:00 AM EST capsule 30 TAKE ONE CAPSULE BY MOUTH EV MARY ANN DAY TAKE ONE CAPSULE BY MOUTH EVERY DAY SOLD: 08/14/2019 [facility] 0.25 mcg 07/17/2019 12:00:00 AM EST capsule 30 TAKE ONE CAPSULE BY MOUTH EVERY DAY TAKE ONE CAPSULE BY MOUTH EVERY DAY SOLD: 05/30/2020 [facility] Calcitriol 0.04295 MG Oral Capsule 0.25 mcg CALCITRIOL 07/17/2019 12:00:00 AM EST capsule 30 TAKE ONE CAPSULE BY MOUTH EV MARY ANN DAY TAKE ONE CAPSULE BY MOUTH EVERY DAY SOLD: 10/13/2019 [facility] Calcitriol 0.87873 MG Oral Capsule 0.25 mcg CALCITRIOL 07/17/2019 12:00:00 AM EST capsule 30 TAKE ONE CAPSULE BY MOUTH EV MARY ANN DAY TAKE ONE CAPSULE BY MOUTH EVERY DAY SOLD: 03/29/2020 [facility] Calcitriol 0.76940 MG Oral Capsule 0.25 mcg CALCITRIOL 07/17/2019 12:00:00 AM EST capsule 30 TAKE ONE CAPSULE BY MOUTH EV MARY ANN DAY TAKE ONE CAPSULE BY MOUTH EVERY DAY SOLD: 12/16/2019 [facility] 0.25 mcg 07/17/2019 12:00:00 AM EST capsule 30 TAKE ONE CAPSULE BY MOUTH EVERY DAY TAKE ONE CAPSULE BY MOUTH EVERY DAY SOLD: 04/26/2020 [facility] Calcitriol 0.32443 MG Oral Capsule 0.25 mcg CALCITRIOL 07/17/2019 12:00:00 AM EST capsule 30 TAKE ONE CAPSULE BY MOUTH EV MARY ANN DAY TAKE ONE CAPSULE BY MOUTH EVERY DAY SOLD: 01/26/2020 [facility] Calcitriol 0.87903 MG Oral Capsule 0.25 mcg CALCITRIOL 07/17/2019 12:00:00 AM EST capsule 30 TAKE ONE CAPSULE BY MOUTH EV MARY ANN DAY TAKE ONE CAPSULE BY MOUTH EVERY DAY SOLD: 09/14/2019 [facility] 10 mg 07/14/2019 12:00:00 AM EST tablet 30 TAKE ONE TABLET BY MOUTH EVERY DAY TAKE ONE TABLET BY MOUTH EVERY DAY SOLD: 07/14/2019 [facility] 10 mg 07/14/2019 12:00:00 AM EST tablet 30 TAKE ONE TABLET BY MOUTH EVERY DAY TAKE ONE TABLET BY MOUTH EVERY DAY SOLD: 08/14/2019 [facility] 10 mg 07/14/2019 12:00:00 AM EST tablet 30 TAKE ONE TABLET BY MOUTH EVERY DAY TAKE ONE TABLET BY MOUTH EVERY DAY SOLD: 10/13/2019 [facility] 10 mg 07/14/2019 12:00:00 AM EST tablet 30 TAKE ONE TABLET BY MOUTH EVERY DAY TAKE ONE TABLET BY MOUTH EVERY DAY SOLD: 11/14/2019 [facility] 10 mg 07/14/2019 12:00:00 AM EST tablet 30 TAKE ONE TABLET BY MOUTH EVERY DAY TAKE ONE TABLET BY MOUTH EVERY DAY SOLD: 09/14/2019 [facility] 10 mg 07/14/2019 12:00:00 AM EST tablet 30 TAKE ONE TABLET BY MOUTH EVERY DAY TAKE ONE TABLET BY MOUTH EVERY DAY SOLD: 12/16/2019 [facility] 40 mg 07/03/2019 12:00:00 AM EST tablet 30 TAKE ONE TABLET BY MOUTH EVERY EVENING TAKE ONE TABLET BY MOUTH EVERY EVENING SOLD: 10/18/2019 [facility] 40 mg 07/03/2019 12:00:00 AM EST tablet 30 TAKE ONE TABLET BY MOUTH EVERY EVENING TAKE ONE TABLET BY MOUTH EVERY EVENING SOLD: 12/16/2019 [facility] Simvastatin 40 MG Oral Tablet SIMVASTATIN 07/03/2019 12:00:00 AM EST tablet 30 TAKE ONE TABLET BY MOUTH EVERY EVENING TAKE ONE TABLET BY MO UT EVERY EVENING SOLD: 07/08/2019 [facility] Simvastatin 40 MG Oral Tablet SIMVASTATIN 07/03/2019 12:00:00 AM EST tablet 30 TAKE ONE TABLET BY MOUTH EVERY EVENING TAKE ONE TABLET BY MO UT EVERY EVENING SOLD: 08/14/2019 [facility] Simvastatin 40 MG Oral Tablet SIMVASTATIN 07/03/2019 12:00:00 AM EST tablet 30 TAKE ONE TABLET BY MOUTH EVERY EVENING TAKE ONE TABLET BY MO UT EVERY EVENING SOLD: 09/14/2019 [facility] 40 mg 07/03/2019 12:00:00 AM EST tablet 30 TAKE ONE TABLET BY MOUTH EVERY EVENING TAKE ONE TABLET BY MOUTH EVERY EVENING SOLD: 11/14/2019 [facility] 25 mg 06/15/2019 12:00:00 AM EST tablet 30 TAKE ONE TABLET BY MOUTH EVERY DAY TAKE ONE TABLET BY MOUTH EVERY DAY SOLD: 03/15/2020 [facility] 25 mg 06/15/2019 12:00:00 AM EST tablet 30 TAKE ONE TABLET BY MOUTH EVERY DAY TAKE ONE TABLET BY MOUTH EVERY DAY SOLD: 06/15/2019 [facility] 25 mg 06/15/2019 12:00:00 AM EST tablet 30 TAKE ONE TABLET BY MOUTH EVERY DAY TAKE ONE TABLET BY MOUTH EVERY DAY SOLD: 12/08/2019 [facility] 25 mg 06/15/2019 12:00:00 AM EST tablet 30 TAKE ONE TABLET BY MOUTH EVERY DAY TAKE ONE TABLET BY MOUTH EVERY DAY SOLD: 08/28/2019 [facility] 25 mg 06/15/2019 12:00:00 AM EST tablet 30 TAKE ONE TABLET BY MOUTH EVERY DAY TAKE ONE TABLET BY MOUTH EVERY DAY SOLD: 09/28/2019 [facility] 25 mg 06/15/2019 12:00:00 AM EST tablet 30 TAKE ONE TABLET BY MOUTH EVERY DAY TAKE ONE TABLET BY MOUTH EVERY DAY SOLD: 01/26/2020 [facility] Acetaminophen 325 MG / Hydrocodone Bitartrate 5 MG Oral Tabl et [Alfred] Alfred 06/12/2019 12:00:00 AM EST ORAL completed [facility] [facility], ) 5-325 mg 06/12/2019 12:00:00 AM EST tablet 20 TAKE ONE TABLET BY MOUTH EVERY 6 HOURS NEEDED FOR PAIN AFTER SURGERY, MAXIMUM DAILY DOSE = FOUR TABLETS TAKE ONE TABLET BY MOUTH EVERY 6 HOURS NEEDED FOR PAIN AFTER SURGERY, MAXIMUM DAILY DOSE = FOUR TABLETS SOLD: 06/12/2019 [facility] 50 mcg 06/01/2019 12:00:00 AM EST tablet 30 TAKE ONE TABLET BY MOUTH EVERY DAY TAKE ONE TABLET BY MOUTH EVERY DAY SOLD: 11/14/2019 [facility] 50 mcg 06/01/2019 12:00:00 AM EST tablet 30 TAKE ONE TABLET BY MOUTH EVERY DAY TAKE ONE TABLET BY MOUTH EVERY DAY SOLD: 06/15/2019 [facility] 50 mcg 06/01/2019 12:00:00 AM EST tablet 30 TAKE ONE TABLET BY MOUTH EVERY DAY TAKE ONE TABLET BY MOUTH EVERY DAY SOLD: 08/14/2019 [facility] 300 mg 06/01/2019 12:00:00 AM EST tablet extended release 24 hr 30 TAKE ONE TABLET BY MOUTH EVERY DAY TAKE ONE TABLET BY MOUTH EVERY DAY SOLD: 07/14/2019 [facility] 300 mg 06/01/2019 12:00:00 AM EST tablet extended release 24 hr 30 TAKE ONE TABLET BY MOUTH EVERY DAY TAKE ONE TABLET BY MOUTH EVERY DAY SOLD: 10/13/2019 [facility] 300 mg 06/01/2019 12:00:00 AM EST tablet extended release 24 hr 30 TAKE ONE TABLET BY MOUTH EVERY DAY TAKE ONE TABLET BY MOUTH EVERY DAY SOLD: 06/15/2019 [facility] 300 mg 06/01/2019 12:00:00 AM EST tablet extended release 24 hr 30 TAKE ONE TABLET BY MOUTH EVERY DAY TAKE ONE TABLET BY MOUTH EVERY DAY SOLD: 09/14/2019 [facility] 50 mcg 06/01/2019 12:00:00 AM EST tablet 30 TAKE ONE TABLET BY MOUTH EVERY DAY TAKE ONE TABLET BY MOUTH EVERY DAY SOLD: 09/14/2019 [facility] 300 mg 06/01/2019 12:00:00 AM EST tablet extended release 24 hr 30 TAKE ONE TABLET BY MOUTH EVERY DAY TAKE ONE TABLET BY MOUTH EVERY DAY SOLD: 11/14/2019 [facility] 300 mg 06/01/2019 12:00:00 AM EST tablet extended release 24 hr 30 TAKE ONE TABLET BY MOUTH EVERY DAY TAKE ONE TABLET BY MOUTH EVERY DAY SOLD: 08/14/2019 [facility] 50 mcg 06/01/2019 12:00:00 AM EST tablet 30 TAKE ONE TABLET BY MOUTH EVERY DAY TAKE ONE TABLET BY MOUTH EVERY DAY SOLD: 10/18/2019 [facility] 50 mcg 06/01/2019 12:00:00 AM EST tablet 30 TAKE ONE TABLET BY MOUTH EVERY DAY TAKE ONE TABLET BY MOUTH EVERY DAY SOLD: 07/14/2019 [facility] 15 mEq 03/25/2019 12:00:00 AM EDT tablet extended release 60 TAKE ONE TABLET BY MOUTH TWICE A DAY TAKE ONE TABLET BY MOUTH TWICE A DAY SOLD: 07/14/2019 [facility] 15 mEq 03/25/2019 12:00:00 AM EDT tablet extended release 60 TAKE ONE TABLET BY MOUTH TWICE A DAY TAKE ONE TABLET BY MOUTH TWICE A DAY SOLD: 10/13/2019 [facility] 15 mEq 03/25/2019 12:00:00 AM EDT tablet extended release 60 TAKE ONE TABLET BY MOUTH TWICE A DAY TAKE ONE TABLET BY MOUTH TWICE A DAY SOLD: 08/28/2019 [facility] 15 mEq 03/25/2019 12:00:00 AM EDT tablet extended release 60 TAKE ONE TABLET BY MOUTH TWICE A DAY TAKE ONE TABLET BY MOUTH TWICE A DAY SOLD: 01/12/2020 [facility] 15 mEq 03/25/2019 12:00:00 AM EDT tablet extended release 60 TAKE ONE TABLET BY MOUTH TWICE A DAY TAKE ONE TABLET BY MOUTH TWICE A DAY SOLD: 06/15/2019 [facility] 15 mEq 03/25/2019 12:00:00 AM EDT tablet extended release 60 TAKE ONE TABLET BY MOUTH TWICE A DAY TAKE ONE TABLET BY MOUTH TWICE A DAY SOLD: 11/14/2019 [facility] 20 mg 03/14/2019 12:00:00 AM EDT tablet 90 TAKE TWO TABLETS BY MOUTH EVERY MORNING AND 1 IN THE EVENING TAKE TWO TABLETS BY MOUTH EVERY MORNING AND 1 IN THE EVENING SOLD: 11/28/2019 [facility] 20 mg 03/14/2019 12:00:00 AM EDT tablet 90 TAKE TWO TABLETS BY MOUTH EVERY MORNING AND 1 IN THE EVENING TAKE TWO TABLETS BY MOUTH EVERY MORNING AND 1 IN THE EVENING SOLD: 08/28/2019 [facility] 20 mg 03/14/2019 12:00:00 AM EDT tablet 90 TAKE TWO TABLETS BY MOUTH EVERY MORNING AND 1 IN THE EVENING TAKE TWO TABLETS BY MOUTH EVERY MORNING AND 1 IN THE EVENING SOLD: 07/14/2019 [facility] 20 mg 03/14/2019 12:00:00 AM EDT tablet 90 TAKE TWO TABLETS BY MOUTH EVERY MORNING AND 1 IN THE EVENING TAKE TWO TABLETS BY MOUTH EVERY MORNING AND 1 IN THE EVENING SOLD: 01/12/2020 [facility] 20 mg 03/14/2019 12:00:00 AM EDT tablet 90 TAKE TWO TABLETS BY MOUTH EVERY MORNING AND 1 IN THE EVENING TAKE TWO TABLETS BY MOUTH EVERY MORNING AND 1 IN THE EVENING SOLD: 06/15/2019 [facility] 20 mg 03/14/2019 12:00:00 AM EDT tablet 90 TAKE TWO TABLETS BY MOUTH EVERY MORNING AND 1 IN THE EVENING TAKE TWO TABLETS BY MOUTH EVERY MORNING AND 1 IN THE EVENING SOLD: 10/13/2019 [facility] montelukast 10 MG Oral Tablet MONTELUKAST SODIUM 03/02/2019 12:0 0:00 AM EDT tablet 30 TAKE ONE TABLET BY MOUTH AT BEDT KITTY TAKE ONE TABLET BY MOUTH AT BEDTIME SOLD: 06/15/2019 [facility] montelukast 10 MG Oral Tablet MONTELUKAST SODIUM 03/02/2019 12:0 0:00 AM EDT tablet 30 TAKE ONE TABLET BY MOUTH AT BEDT KITTY TAKE ONE TABLET BY MOUTH AT BEDTIME SOLD: 07/14/2019 [facility] Calcitriol 0.79044 MG Oral Capsule 0.25 mcg CALCITRIOL 01/05/2019 12:00:00 AM EDT capsule 42 TAKE ONE CAPSULE BY MOUTH EV MARY ANN DAY TAKE ONE CAPSULE BY MOUTH EVERY DAY SOLD: 06/02/2019 [facility] Simvastatin 40 MG Oral Tablet SIMVASTATIN 11/24/2018 12:00:00 AM EDT tablet 30 TAKE ONE TABLET BY MOUTH EVERY EVENING TAKE ONE TABLET BY MO UTH EVERY EVENING SOLD: 05/31/2019 [facility] 1,250 mcg (50,000 unit) 11/22/2018 12:00:00 AM EDT capsule 1 TAKE ONE TABLET BY MOUTH ONCE A MONTH TAKE ONE TABLET BY MOUTH ONCE A MONTH SOLD: 08/14/2019 [facility] 1,250 mcg (50,000 unit) 11/22/2018 12:00:00 AM EDT capsule 1 TAKE ONE TABLET BY MOUTH ONCE A MONTH TAKE ONE TABLET BY MOUTH ONCE A MONTH SOLD: 09/28/2019 [facility] 1,250 mcg (50,000 unit) 11/22/2018 12:00:00 AM EDT capsule 1 TAKE ONE TABLET BY MOUTH ONCE A MONTH TAKE ONE TABLET BY MOUTH ONCE A MONTH SOLD: 06/15/2019 [facility] 1,250 mcg (50,000 unit) 11/22/2018 12:00:00 AM EDT capsule 1 TAKE ONE TABLET BY MOUTH ONCE A MONTH TAKE ONE TABLET BY MOUTH ONCE A MONTH SOLD: 07/14/2019 [facility] 10 mg 11/04/2018 12:00:00 AM EDT tablet 30 TAKE ONE TABLET BY MOUTH EVERY DAY TAKE ONE TABLET BY MOUTH EVERY DAY SOLD: 06/02/2019 [facility] 10-240 MG 08/08/2018 12:00:00 AM EST Tablet 30 TAKE ONE TABLET BY MOUTH EVERY DAY NEEDED FOR CONGESTION TAKE ONE TABLET BY MOUTH EVERY DAY NE EDED FOR CONGESTION SOLD: 08/14/2019 [facility] 10-240 MG 08/08/2018 12:00:00 AM EST Tablet 30 TAKE ONE TABLET BY MOUTH EVERY DAY NEEDED FOR CONGESTION TAKE ONE TABLET BY MOUTH EVERY DAY NE EDED FOR CONGESTION SOLD: 07/14/2019 [facility] Insurance Providers Payer name Policy type / Coverage type Policy ID Covered republican ID Covered republican's relationship to [place] Policy [place] Plan Information [facility] FEDERAL EMPLOYEE PROGRAM [id number] [facility] [id number] [facility] B [id number] P [id number] GUARDIAN - GROUP MED CLAIMS [id number] SP [id number] BC[employer] [place] [id number] SP [id number] THE GUARDIAN [id number] SP [id number] [facility] [id number] SP [id number] [facility] PRM Workers Compensation [id number] Mary f [id number] PRM () Workers Compensation [id number] Self [id number] [facility] Fund () Workers Compensation [id number] Self [id number] BS Fed Plan Commercial [id number] Family Dependent [id number] BCBS FEDERAL EMPLOYEE PROGRAM [id number] BS [facility]RIAN [facility] B [id number] P [id number] [facility] O [id number] O [id number] [facility] [id number] SP [id number] [facility] [id number] SP [id number] [facility] O [id number] S 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 PHY [id number] SP [id number] Surgeries/Procedures Procedure Description Date Indications Data Source(s) Laparoscopy, Fulguration/Excision Lesions Of Ovary/PLVS/[facility] tnl 06/12/2019 12:00:00 AM [facility]INDY SERRANO ([facility] ALYSSA gtz) Results ID Date Data Source [id number] 06/12/2019 12:57:00 PM EST [facility] ([facility]) Name Value Range Interpretation Code Description Data La rce(s) Supporting Document(s) Glucose [Mass/volume] in Capillary blood by Glucometer 176 mg/dL 70-105 Above high normal [facility] ([facility]) Nurse Notified ID Date Data Source [id number] 06/12/2019 12:33:00 PM EST [facility] ([facility]) Name Value Range Interpretation Code Description Data [facility]) Supporting Document(s) Surgical pathology study (SEE NOTE) [facility]) <content>FINAL DIAGNOSIS</content>
< content></content>
<content>Cyst, left pelvic, cystectomy:</content>
<content>Benign serous cystadenoma.</content>
<content>06/16/2019 - 1101</content>
<content></content>
<content>CLINICAL DIAGNOSIS</content>
<content></content>
<content>Left lower quadrant pain</content>
<content>06/15/20191422</content>
<content> </content>
<content>GROSS DIAGNOSIS</content>
<content></content>
<content>Received in formalin labeled "left pelvic cyst" is partially collapsed</content>
<content>cystic tissue measuring approximately 5 x 4 x 2 cm. The outer surface</content>
<content>is mostly smooth with focal thickening and fibroadhesions. Opening of</content>
<content>the cyst revealed a small amount of clear serous fluid and a smooth</content>
<content>inner surface. Represented in (A1 & A2).</content>
<content>- JAYY</content>
<content>06/15/2019 - 1422</content>
<content></content>
<content>Signed Geovanna Rincon M.D. 06/16/2019 1105</content>
<content></content> ID Date Data Source [id number] 06/12/2019 10:24:00 AM EST [facility] ([facility]) Name Value Range Interpretation Code Description Data La rce(s) Supporting Document(s) Glucose [Mass/volume] in Capillary blood by Glucometer 209 mg/dL 70-105 Above high normal [facility] ([facility]) Doctor Notified Procedure Vital Signs ID Date Data Source UNK Name Value Range Interpretation Code Description Data Source(s) Body weight 138.348 kg 138.348 kg [facility] ([facility]) Body mass index (BMI) [Ratio] 52.3 kg/m2 52.3 k g/m2 [facility] ([facility]) Body weight 305.00 [lb_av] 305.00 [lb_av] [facility] Body height 64 [in_i] 64 [in_i] [facility] ([facility]) 5'4" Body weight 136.987 kg 136.987 kg [facility] ([facility]) Body mass index (BMI) [Ratio] 51.8 kg/m2 51.8 k g/m2 [facility] ([facility]) Body weight 302.00 [lb_av] 302.00 [lb_av] [facility] Body height 64 [in_i] 64 [in_i] [facility] ([facility]) 5'4" Heart rate 88 /min 88 /min [facility] ([facility]) Diastolic blood pressure 83 mm[Hg] 83 mm[Hg] [facility] ([facility]) Systolic blood pressure 128 mm[Hg] 128 mm[Hg] [facility])
[2020-07-16] MEDS ORDERED: LIDOCAINE 1% MDV 20ML VIAL SC ONE (08:30)
[2020-07-16] MEDS ORDERED: BACT800T5 PO (08:54)
== END 2020-07-16 09:03 | disposition home or self-care (01) ==
LOC: M ED 08:03
DX: L02.214 Cutaneous abscess of groin (principal); L03.314 Cellulitis of groin; K21.9 Gastro-esophageal reflux disease without esophagitis; E03.9 Hypothyroidism, unspecified; E78.00 Pure hypercholesterolemia, unspecified; F33.9 Major depressive disorder, recurrent, unspecified; F41.9 Anxiety disorder, unspecified; Q61.3 Polycystic kidney, unspecified; Z79.899 Other long term (current) drug therapy; Z79.890 Hormone replacement therapy; Z91.018 Allergy to other foods

== ENCOUNTER → 2020-07-22 | Outpatient (CLI) | payer SELFPAY ==
[~2020-07-22] MED LIST changes: +BACT800T5 PO; +MONT10TA10 PO; -MONT5TAB2 PO
== END ==
LOC: M LABSMTC 10:57
PROVIDERS: ATTEND Pediatrics
DX: Z20.822 Contact with and (suspected) exposure to COVID-19 (principal)

== ENCOUNTER 2020-09-10 15:20 | Emergency (ER) | payer BC ==
[~2020-09-10] VITALS: Ht 162.6 cm; Wt 138.8 kg
[2020-09-10 16:08] LABS: BASO # 0.1 10^3/uL (0.0-0.2); BASO % 0.7 % (0.0-1.0); EOS # 0.5 10^3/uL (0.0-0.5); EOS % 5.9 % (0.0-3.0); HEMATOCRIT 48.4 % (36.0-47.0); HEMOGLOBIN 15.8 g/dl (12.0-15.5); LYMPH # 3.9 10^3/uL (1.5-5.0); LYMPH % 46.6 % (24.0-44.0); MEAN CORPUSCULAR HEMOGLOBIN 30.2 pg (27.0-33.0); MEAN CORPUSCULAR HGB CONC 32.6 g/dl (32.0-36.5); MEAN CORPUSCULAR VOLUME 92.5 fl (80.0-96.0); MONO # 0.5 10^3/uL (0.0-0.8); MONO % 6.5 % (2.0-8.0); NEUTROPHILS # 3.4 10^3/uL (1.5-8.5); NEUTROPHILS % 40.1 % (36.0-66.0); PLATELET COUNT, AUTOMATED 168 10^3/uL (150-450); RED BLOOD COUNT 5.23 10^6/uL (4.00-5.40); WHITE BLOOD COUNT 8.4 10^3/uL (4.0-10.0)
--- NOTE | 2020-09-10 17:59 | REPVR ---
PROCEDURE INFORMATION: Exam: CT Abdomen And Pelvis Without Contrast Exam date and time: 09/10/2020 4:23 PM Age: 54 years old Clinical indication: Abdominal pain; Flank; Left; Additional info: Flank pain L TECHNIQUE: Imaging protocol: Computed tomography of the abdomen and pelvis without contrast. Axial, coronal and sagittal reformatted images were created and reviewed. Radiation optimization: All CT scans at this facility use at least one of these dose optimization techniques: automated exposure control; mA and/or kV adjustment per patient size (includes targeted exams where dose is matched to clinical indication); or iterative reconstruction. COMPARISON: CT ABD PELVIS W/O CONTRAST 08/18/2019 11:24 AM FINDINGS: Lungs: Mild dependent atelectatic change at the lung bases. Liver: Nodular hepatic contour, consistent with cirrhosis. Innumerable low-density hepatic lesions, measuring up to 2.1 x 1.8 cm, the largest of which are simple cysts and many of which are too small to characterize. Gallbladder and bile ducts: Status post cholecystectomy. No biliary ductal dilatation. Pancreas: Unremarkable. Spleen: Unremarkable. Adrenal glands: Normal. No mass. Kidneys and ureters: Innumerable bilateral renal cysts, some of which are mildly complex. Nonobstructing bilateral renal calculi and/or parenchymal calcifications. No hydronephrosis. Stomach and bowel: Scattered colonic diverticula without evidence of diverticulitis. No obstruction. No bowel wall thickening. No pneumatosis. Appendix: Normal. Intraperitoneal space: No free fluid. No organized fluid collection. No free air. Vasculature: Minimal atherosclerotic disease. No aneurysm. Lymph nodes: No pathologically enlarged lymph nodes. Urinary bladder: Unremarkable as visualized. Reproductive: Status post hysterectomy. Bones/joints: No acute osseous abnormality. Osteopenia. Degenerative changes. Soft tissues: Small, fat containing umbilical hernia. IMPRESSION: 1. Limited noncontrast examination without CT evidence of acute intra-abdominal or pelvic pathology. 2. Additional findings, as above. COMMENTS: Consistent with the [employer]'s Incidental Findings Committee white paper (J Am [employer]ald [employer]iol 2018): Any incidental renal lesion less than 1 cm or classified as too small to characterize, or any incidental cystic renal lesion characterized as simple-appearing, is likely benign. No follow-up imaging is recommended for these lesions per consensus recommendations based on imaging criteria. Electronically signed by: Carlos Olivia On 09/10/2020 17:59:30 PM
[2020-09-10 18:36] VITALS: BP 135/74
== END 2020-09-10 18:51 | disposition home or self-care (01) ==
LOC: M ED 15:20
DX: N20.0 Calculus of kidney (principal); Q61.3 Polycystic kidney, unspecified; F17.200 Nicotine dependence, unspecified, uncomplicated; Z79.899 Other long term (current) drug therapy; Z91.013 Allergy to seafood

== ENCOUNTER → 2020-12-28 | Outpatient (CLI) | payer BC ==
[2020-12-28 12:03] LABS: HEMATOCRIT 49.5 % (36.0-47.0); HEMOGLOBIN 16.1 g/dl (12.0-15.5); MEAN CORPUSCULAR HEMOGLOBIN 29.9 pg (27.0-33.0); MEAN CORPUSCULAR HGB CONC 32.5 g/dl (32.0-36.5); MEAN CORPUSCULAR VOLUME 91.8 fl (80.0-96.0); PLATELET COUNT, AUTOMATED 163 10^3/uL (150-450); RED BLOOD COUNT 5.39 10^6/uL (4.00-5.40); WHITE BLOOD COUNT 8.9 10^3/uL (4.0-10.0)
[2020-12-28 12:35] LABS: ALBUMIN 3.4 GM/DL (3.2-5.2); BILIRUBIN,TOTAL 0.5 MG/DL (0.2-1.0); CALCIUM LEVEL 8.8 MG/DL (8.5-10.1); CHOLESTEROL RISK RATIO 4.102 (<5); CREATININE FOR GFR 2.1 MG/DL (0.55-1.30); FREE T4 0.99 NG/DL (0.76-1.46); GLOMERULAR FILTRATION RATE 26.2 (>51); POTASSIUM SERUM 4.6 MEQ/L (3.5-5.1); THYROID STIMULATING HORMONE 1.12 uIU/ML (0.358-3.740); TOTAL PROTEIN 6.8 GM/DL (6.4-8.2)
[2020-12-28 12:37] LABS: MAU/CREAT RATIO 215.3 MCG/MG (0.0-30.0)
[2020-12-28 14:05] LABS: HEMOGLOBIN A1c 6.6 %
== END ==
LOC: M LAB 11:18
PROVIDERS: ATTEND Nurse Practitioner Family
DX: I10 Essential (primary) hypertension (principal)

== ENCOUNTER → 2021-01-07 | Outpatient (REF) | payer BC ==
[2021-01-07 21:37] LABS: APPEARANCE, URINE HAZY (CLEAR); BACTERIA, URINE AUTO NEGATIVE (NEGATIVE); BILIRUBIN, URINE AUTO NEGATIVE (NEGATIVE); BLOOD, URINE BLOOD NEGATIVE (NEGATIVE); COLOR, URINE YELLOW (YELLOW); GLUCOSE, URINE (UA) AUTO NEGATIVE (NEGATIVE); KETONE, URINE AUTO NEGATIVE (NEGATIVE); LEUKOCYTE ESTERASE, URINE AUTO NEGATIVE (NEGATIVE); NITRITE, URINE AUTO NEGATIVE (NEGATIVE); PROTEIN, URINE AUTO 2+ mg/dL (NEGATIVE); RBC, URINE AUTO 0 /HPF (0-3); SPECIFIC GRAVITY URINE AUTO 1.013 (1.002-1.035); SQUAMOUS EPITHELIAL CELL UR AU 4 /HPF (0-6); WBC, URINE AUTO 3 /HPF (0-3)
== END ==
LOC: M LAB REF 21:19
PROVIDERS: ATTEND Physician Assistant Medical
DX: N39.0 Urinary tract infection, site not specified (principal)

== ENCOUNTER → 2021-01-16 | Outpatient (REF) | payer BC | LOC: M LAB REF 16:54 | PROVIDERS: ATTEND Internal Medicine Nephrology | DX: N18.4 Chronic kidney disease, stage 4 (severe) (principal) ==

== ENCOUNTER → 2021-02-04 | Outpatient (CLI) | payer BC | LOC: M PLALAB 11:32 | PROVIDERS: ATTEND Internal Medicine Endocrinology, Diabetes & Metabolism | DX: L65.9 Nonscarring hair loss, unspecified (principal) ==

== ENCOUNTER 2021-02-13 17:50 | Emergency (ER) | payer BC ==
[~2021-02-13] VITALS: Ht 162.6 cm; Wt 140.1 kg
[2021-02-13 17:51] VITALS: BP 153/93
== END 2021-02-13 18:09 | disposition left against medical advice (07) ==
LOC: M ED 17:50
DX: Z53.21 Procedure and treatment not carried out due to patient leaving prior to being seen by health care provider (principal)

== ENCOUNTER 2021-02-14 08:51 | Emergency (ER) | payer BC ==
[~2021-02-14] VITALS: Ht 162.6 cm; Wt 141.0 kg
[2021-02-14] MEDS ORDERED: NS 1,000 ML IV SCH (09:25)
[2021-02-14] MEDS ORDERED: ONDANSETRON 4MG/2ML VIAL IV ONE (09:25)
[2021-02-14] MEDS ORDERED: MORPHINE 4 MG/ML 1ML VIAL/SYRINGE (J2270) IV ONE (09:25)
--- NOTE | 2021-02-14 10:14 | REP ---
INDICATION: L flank pain COMPARISON: 09/10/2020. TECHNIQUE: CT Scan of the abdomen and pelvis was performed without intravenous contrast. Sagittal and coronal reconstruction images performed. FINDINGS: Lung bases: Unremarkable. Liver: Cystic structures in the liver appear unchanged. Gallbladder: Prior cholecystectomy. Spleen: Grossly unremarkable. Adrenals: Normal. Pancreas: Grossly unremarkable.. Kidneys: No hydronephrosis. Ureters demonstrate no dilatation or calculus. Polycystic kidneys are again noted. Subcentimeter intrarenal calculi are seen bilaterally unchanged. Small and large bowel: There is colonic diverticulosis without evidence of acute diverticulitis. Free fluid: None. Abdominal aorta: No aneurysm. Adenopathy: None. Appendix: Not inflamed. Osseous structures: There are degenerative changes of the spine without compression deformity. Pelvis: No mass. No bladder calculus seen. Prior hysterectomy. IMPRESSION: No acute pathology identified in the abdomen or pelvis. Stable exam. <Electronically signed by Darnell San > 02/14/21 1010
[2021-02-14 10:52] LABS: BASO # 0.1 10^3/uL (0.0-0.2); BASO % 0.8 % (0.0-1.0); EOS # 0.6 10^3/uL (0.0-0.5); EOS % 8.4 % (0.0-3.0); HEMATOCRIT 50.2 % (36.0-47.0); LYMPH # 3.1 10^3/uL (1.5-5.0); LYMPH % 40.8 % (24.0-44.0); MEAN CORPUSCULAR HGB CONC 31.9 g/dl (32.0-36.5); MEAN CORPUSCULAR VOLUME 94.2 fl (80.0-96.0); MONO # 0.5 10^3/uL (0.0-0.8); MONO % 6.2 % (2.0-8.0); NEUTROPHILS # 3.3 10^3/uL (1.5-8.5); NEUTROPHILS % 43.5 % (36.0-66.0); PLATELET COUNT, AUTOMATED 145 10^3/uL (150-450); RED BLOOD COUNT 5.33 10^6/uL (4.00-5.40); WHITE BLOOD COUNT 7.6 10^3/uL (4.0-10.0)
[2021-02-14 11:17] LABS: ALBUMIN 3.3 GM/DL (3.2-5.2); ALT/SGPT 36 U/L (12-78); BILIRUBIN,DIRECT < 0.1 MG/DL (0.0-0.2); BILIRUBIN,TOTAL 0.5 MG/DL (0.2-1.0); BLOOD UREA NITROGEN 24 MG/DL (7-18); CALCIUM LEVEL 8.7 MG/DL (8.5-10.1); CARBON DIOXIDE LEVEL 25 MEQ/L (21-32); CHLORIDE LEVEL 110 MEQ/L (98-107); CREATININE FOR GFR 2.36 MG/DL (0.55-1.30); GLOMERULAR FILTRATION RATE 22.9 (>51); GLUCOSE, FASTING 134 MG/DL (70-100); LIPASE 244 U/L (73-393); POTASSIUM SERUM 4.7 MEQ/L (3.5-5.1); SODIUM LEVEL 140 MEQ/L (136-145); TOTAL PROTEIN 6.6 GM/DL (6.4-8.2)
[2021-02-14 12:22] VITALS: BP 94/68
== END 2021-02-14 12:37 | disposition home or self-care (01) ==
LOC: M ED 08:51
DX: R10.9 Unspecified abdominal pain (principal); N18.9 Chronic kidney disease, unspecified; E11.9 Type 2 diabetes mellitus without complications; E07.9 Disorder of thyroid, unspecified; F17.200 Nicotine dependence, unspecified, uncomplicated; Z87.442 Personal history of urinary calculi; Z79.899 Other long term (current) drug therapy; Z79.890 Hormone replacement therapy; Z79.51 Long term (current) use of inhaled steroids; Z91.013 Allergy to seafood
CPT/HCPCS: 74176; 80048; 80076; 81001; 83690; 85025; 93041; 96374; 96375; 99284; J2270; J2405

== ENCOUNTER → 2021-03-26 | Outpatient (CLI) | payer BC ==
[~2021-03-26] MED LIST changes: +B COCAP4 PO; +ERGO500029 PO; +LEVO75TA4 PO; +NEXI20CA33 PO
== END ==
LOC: M PLALAB 08:32 → M LAB 08:32
PROVIDERS: ATTEND Nurse Practitioner Family
DX: L65.9 Nonscarring hair loss, unspecified (principal)

== ENCOUNTER → 2021-04-16 | Outpatient (REF) | payer BC | LOC: M LAB REF 13:05 | PROVIDERS: ATTEND Nurse Practitioner Family | DX: N18.4 Chronic kidney disease, stage 4 (severe) (principal) ==

== ENCOUNTER → 2021-07-31 | Outpatient (REF) | payer BC ==
[~2021-07-31] MED LIST changes: -CEFD1CAP8 PO; +CEFD300C41 PO; -MONT10TA10 PO; +MONT10TA97 PO
== END ==
LOC: M LAB REF 12:48
PROVIDERS: ATTEND Nurse Practitioner Family
DX: E83.42 Hypomagnesemia (principal)

== ENCOUNTER → 2021-10-09 | Outpatient (CLI) | payer BC | LOC: M LAB 14:59 → M RAD 14:59 | PROVIDERS: ATTEND Nurse Practitioner Family | DX: R05.9 Cough, unspecified (principal) ==

== ENCOUNTER → 2021-11-14 | Outpatient (CLI) | payer BC | LOC: M WHC 07:46 | PROVIDERS: ATTEND Obstetrics & Gynecology | DX: Z12.31 Encounter for screening mammogram for malignant neoplasm of breast (principal); M81.0 Age-related osteoporosis without current pathological fracture ==

== ENCOUNTER → 2021-11-30 | Outpatient (CLI) | payer BC ==
[~2021-11-30] MED LIST changes: +KP F1200 PO; +SPIR50TA4 PO
== END ==
LOC: M LABSMTC 12:08
PROVIDERS: ATTEND Anesthesiology
DX: Z01.818 Encounter for other preprocedural examination (principal); Z11.52 Encounter for screening for COVID-19

== ENCOUNTER → 2021-12-02 | Outpatient (CLI) | payer BC ==
[2021-12-02 10:56] LABS: HEMOGLOBIN 15.6 g/dl (12.0-15.5); MEAN CORPUSCULAR HEMOGLOBIN 31.5 pg (27.0-33.0); MEAN CORPUSCULAR HGB CONC 33.2 g/dl (32.0-36.5); MEAN CORPUSCULAR VOLUME 94.8 fl (80.0-96.0); PLATELET COUNT, AUTOMATED 158 10^3/uL (150-450); RED BLOOD COUNT 4.96 10^6/uL (4.00-5.40)
[2021-12-02 11:35] LABS: ALBUMIN 3.4 GM/DL (3.2-5.2); BILIRUBIN,TOTAL 0.6 MG/DL (0.2-1.0); CALCIUM LEVEL 10.1 MG/DL (8.5-10.1); CHOLESTEROL RISK RATIO 3.648 (<5); CREATININE FOR GFR 3.78 MG/DL (0.55-1.30); FREE T4 1.15 NG/DL (0.76-1.46); GLOMERULAR FILTRATION RATE 13.3 (>51); POTASSIUM SERUM 4.9 MEQ/L (3.5-5.1); THYROID STIMULATING HORMONE 2.91 uIU/ML (0.358-3.740); TOTAL PROTEIN 6.5 GM/DL (6.4-8.2)
[2021-12-02 11:38] LABS: MALB URINE SIEMENS 50.6 MG/L; MAU/CREAT RATIO 41.1 MCG/MG (0.0-30.0)
[2021-12-02 11:38] LABS: TOTAL 25(OH) VITAMIN D 53.1 NG/ML (30.0-100.0)
[2021-12-02 13:26] LABS: HEMOGLOBIN A1c 6.8 %
== END ==
LOC: M LAB 09:43
PROVIDERS: ATTEND Internal Medicine Cardiovascular Disease
DX: E55.9 Vitamin D deficiency, unspecified (principal); E11.9 Type 2 diabetes mellitus without complications; E03.9 Hypothyroidism, unspecified; I10 Essential (primary) hypertension; E78.5 Hyperlipidemia, unspecified

== ENCOUNTER 2021-12-03 08:28 | Day surgery (SDC) | payer BC ==
[~2021-12-03] VITALS: Ht 162.6 cm; Wt 135.6 kg
[~2021-12-03 08:28] MED LIST changes: +NS 1,000 ML IV ONE
[2021-12-03] MEDS ORDERED: propofoL 200 MG/20 ML VIAL As Ordered ONE ×2 (09:47→09:49)
[2021-12-03 10:16] VITALS: BP 82/54
== END 2021-12-03 10:25 | disposition home or self-care (01) ==
LOC: M SDC 08:28 → M OPP 08:28 → M SDC 10:25
PROVIDERS: ATTEND Surgery
DX: Z12.11 Encounter for screening for malignant neoplasm of colon (principal); Z53.8 Procedure and treatment not carried out for other reasons

== ENCOUNTER → 2022-02-08 | Outpatient (CLI) | payer BC ==
[~2022-02-08] MED LIST changes: -NS 1,000 ML IV ONE
== END ==
LOC: M LABSMTC 11:40
PROVIDERS: ATTEND Anesthesiology
DX: Z01.812 Encounter for preprocedural laboratory examination (principal)

== ENCOUNTER 2022-02-11 10:18 | Day surgery (SDC) | payer BC ==
[~2022-02-11] VITALS: Ht 162.6 cm; Wt 137.0 kg
[~2022-02-11 10:18] MED LIST changes: +NS 1,000 ML IV ONE
[2022-02-11] MEDS ORDERED: propofoL 200 MG/20 ML VIAL As Ordered ONE (11:45)
[2022-02-11 12:27] VITALS: BP 96/53
== END 2022-02-11 12:34 | disposition home or self-care (01) ==
LOC: M OPP 10:18
PROVIDERS: ATTEND Surgery
DX: Z12.11 Encounter for screening for malignant neoplasm of colon (principal); D12.4 Benign neoplasm of descending colon; K57.30 Diverticulosis of large intestine without perforation or abscess without bleeding; E11.9 Type 2 diabetes mellitus without complications; E03.9 Hypothyroidism, unspecified; F32.9 Major depressive disorder, single episode, unspecified; F41.9 Anxiety disorder, unspecified; N18.4 Chronic kidney disease, stage 4 (severe); Z79.51 Long term (current) use of inhaled steroids; Z79.84 Long term (current) use of oral hypoglycemic drugs; Z79.899 Other long term (current) drug therapy; Z85.41 Personal history of malignant neoplasm of cervix uteri; Z87.891 Personal history of nicotine dependence

== ENCOUNTER → 2022-03-26 | Outpatient (CLI) | payer BC ==
[~2022-03-26] MED LIST changes: -NS 1,000 ML IV ONE
[2022-03-26 12:09] LABS: HEMATOCRIT 47.6 % (36.0-47.0); HEMOGLOBIN 15.6 g/dl (12.0-15.5); MEAN CORPUSCULAR HEMOGLOBIN 30.7 pg (27.0-33.0); MEAN CORPUSCULAR HGB CONC 32.8 g/dl (32.0-36.5); MEAN CORPUSCULAR VOLUME 93.7 fl (80.0-96.0); PLATELET COUNT, AUTOMATED 175 10^3/uL (150-450); RED BLOOD COUNT 5.08 10^6/uL (4.00-5.40); WHITE BLOOD COUNT 9.2 10^3/uL (4.0-10.0)
[2022-03-26 12:34] LABS: HEMOGLOBIN A1c 6.6 %
[2022-03-26 12:55] LABS: MAU/CREAT RATIO 48.8 MCG/MG (0.0-30.0)
[2022-03-26 13:08] LABS: ALBUMIN 3.4 GM/DL (3.2-5.2); BILIRUBIN,TOTAL 0.7 MG/DL (0.2-1.0); CALCIUM LEVEL 9.6 MG/DL (8.5-10.1); CHOLESTEROL RISK RATIO 3.86 (<5); CREATININE FOR GFR 3.66 MG/DL (0.55-1.30); FREE T4 1.16 NG/DL (0.76-1.46); GLOMERULAR FILTRATION RATE 13.8 (>51); POTASSIUM SERUM 4.5 MEQ/L (3.5-5.1); THYROID STIMULATING HORMONE 2.35 uIU/ML (0.358-3.740); TOTAL PROTEIN 7.2 GM/DL (6.4-8.2)
[2022-03-26 13:48] LABS: TOTAL 25(OH) VITAMIN D 48.9 NG/ML (30.0-100.0)
== END ==
LOC: M LAB 10:47
PROVIDERS: ATTEND Nurse Practitioner Family
DX: I10 Essential (primary) hypertension (principal); E78.5 Hyperlipidemia, unspecified; E55.9 Vitamin D deficiency, unspecified

== ENCOUNTER → 2022-03-26 | Outpatient (CLI) | payer BC | LOC: M CARPUL 10:41 | PROVIDERS: ATTEND Nurse Practitioner Family | DX: R06.00 Dyspnea, unspecified (principal) ==

== ENCOUNTER → 2022-04-07 | Outpatient (REF) | payer BC | LOC: M LAB REF 16:58 | PROVIDERS: ATTEND Nurse Practitioner Family | DX: N39.0 Urinary tract infection, site not specified (principal) ==

== ENCOUNTER → 2022-05-15 | Outpatient (REF) | payer BC | LOC: M LAB REF 17:09 | PROVIDERS: ATTEND Nurse Practitioner Family | DX: N39.0 Urinary tract infection, site not specified (principal) ==

== ENCOUNTER → 2022-05-18 | Outpatient (CLI) | payer BC | LOC: M RAD 12:02 | PROVIDERS: ATTEND Nurse Practitioner Family | DX: I82.812 Embolism and thrombosis of superficial veins of left lower extremity (principal); R60.0 Localized edema ==

== ENCOUNTER → 2022-07-14 | Outpatient (CLI) | payer BC | LOC: M RAD 15:15 | PROVIDERS: ATTEND Nurse Practitioner Family | DX: M17.12 Unilateral primary osteoarthritis, left knee (principal) ==

== ENCOUNTER → 2022-08-03 | Outpatient (CLI) | payer BC | LOC: M PLAIMG 11:35 | PROVIDERS: ATTEND Nurse Practitioner Family | DX: N20.0 Calculus of kidney (principal) ==

== ENCOUNTER 2022-08-11 04:44 | Emergency (ER) | payer BC ==
[~2022-08-11] VITALS: Ht 162.6 cm; Wt 141.4 kg
[2022-08-11] MEDS ORDERED: BIOT1CAP2 PO (04:55)
[2022-08-11 06:12] LABS: BASO # 0.1 10^3/uL (0.0-0.2); BASO % 0.4 % (0.0-1.0); EOS # 0.5 10^3/uL (0.0-0.5); HEMATOCRIT 44.2 % (36.0-47.0); HEMOGLOBIN 14.9 g/dl (12.0-15.5); LYMPH # 2.4 10^3/uL (1.5-5.0); LYMPH % 17.2 % (24.0-44.0); MEAN CORPUSCULAR HEMOGLOBIN 31.1 pg (27.0-33.0); MEAN CORPUSCULAR HGB CONC 33.7 g/dl (32.0-36.5); MEAN CORPUSCULAR VOLUME 92.3 fl (80.0-96.0); MONO % 7.4 % (2.0-8.0); NEUTROPHILS # 9.6 10^3/uL (1.5-8.5); NEUTROPHILS % 70.6 % (36.0-66.0); PLATELET COUNT, AUTOMATED 158 10^3/uL (150-450); RED BLOOD COUNT 4.79 10^6/uL (4.00-5.40); WHITE BLOOD COUNT 13.6 10^3/uL (4.0-10.0)
[2022-08-11] MEDS ORDERED: ONDANSETRON 4MG 2ML VIAL IV ONE (06:30)
[2022-08-11 06:44] LABS: BILIRUBIN,DIRECT 0.2 MG/DL (<0.4); BILIRUBIN,TOTAL 0.6 MG/DL (0.3-1.2); CALCIUM LEVEL 8.8 MG/DL (8.5-10.1); CREATININE FOR GFR 3.26 MG/DL (0.55-1.30); GLOMERULAR FILTRATION RATE 15.7 (>51); POTASSIUM SERUM 4.2 MMOL/L (3.5-5.1); TOTAL PROTEIN 6.2 G/DL (5.7-8.2)
[2022-08-11] MEDS ORDERED: cefTRIAXone SOD 1 GM in D5W MINI-BAG PLUS 50 ML IV ONE (08:10)
[2022-08-11] MEDS ORDERED: FOSFOMYCIN TROMETHAMINE 3 GM POWDER PACKET (MONUROL) PO ONE (08:50)
[2022-08-11 09:50] VITALS: BP 115/60
== END 2022-08-11 09:50 | disposition home or self-care (01) ==
LOC: M ED 04:44
DX: N10 Acute pyelonephritis (principal); R11.0 Nausea; K21.9 Gastro-esophageal reflux disease without esophagitis; E78.5 Hyperlipidemia, unspecified; J45.909 Unspecified asthma, uncomplicated; E03.9 Hypothyroidism, unspecified; N18.4 Chronic kidney disease, stage 4 (severe); Z85.41 Personal history of malignant neoplasm of cervix uteri; Z90.49 Acquired absence of other specified parts of digestive tract; Z90.710 Acquired absence of both cervix and uterus; Z90.722 Acquired absence of ovaries, bilateral; F17.200 Nicotine dependence, unspecified, uncomplicated; Z91.013 Allergy to seafood; Z79.899 Other long term (current) drug therapy; Z79.890 Hormone replacement therapy
CPT/HCPCS: 74176; 80048; 80076; 81001; 83605; 83690; 85025; 87088; 87186; 93041; 96374; 99284; J0696

== ENCOUNTER → 2022-10-20 | Outpatient (CLI) | payer BC ==
[~2022-10-20] MED LIST changes: +BIOT1CAP2 PO
== END ==
LOC: M SLEEP 20:00
PROVIDERS: ATTEND Nurse Practitioner Family
DX: G47.33 Obstructive sleep apnea (adult) (pediatric) (principal)

== ENCOUNTER → 2022-10-21 | Outpatient (CLI) | payer BC ==
[2022-10-21 07:06] LABS: HEMOGLOBIN 15.9 g/dl (12.0-15.5); MEAN CORPUSCULAR HEMOGLOBIN 30.2 pg (27.0-33.0); MEAN CORPUSCULAR HGB CONC 32.4 g/dl (32.0-36.5); MEAN CORPUSCULAR VOLUME 93.2 fl (80.0-96.0); PLATELET COUNT, AUTOMATED 147 10^3/uL (150-450); RED BLOOD COUNT 5.26 10^6/uL (4.00-5.40); WHITE BLOOD COUNT 8.5 10^3/uL (4.0-10.0)
[2022-10-21 07:30] LABS: CREATININE, URINE 169.6 MG/DL; MAU/CREAT RATIO 29.4 MCG/MG (0.0-30.0)
[2022-10-21 07:33] LABS: ALBUMIN 3.3 G/DL (3.2-5.2); BILIRUBIN,TOTAL 0.7 MG/DL (0.3-1.2); CALCIUM LEVEL 8.9 MG/DL (8.5-10.1); CHOLESTEROL RISK RATIO 6.2 (<5); CREATININE FOR GFR 4.11 MG/DL (0.55-1.30); LDL CHOLESTEROL 159.8 MG/DL (<100); THYROID STIMULATING HORMONE 5.987 uIU/ML (0.55-4.78); TOTAL PROTEIN 6.7 G/DL (5.7-8.2)
[2022-10-21 07:34] LABS: FREE T4 1.01 NG/DL (0.89-1.76)
[2022-10-21 07:47] LABS: HEMOGLOBIN A1c 6.7 % (4.0-6.0)
== END ==
LOC: M LAB 06:22
PROVIDERS: ATTEND Nurse Practitioner Family
DX: I10 Essential (primary) hypertension (principal); E78.5 Hyperlipidemia, unspecified; E03.9 Hypothyroidism, unspecified; E55.9 Vitamin D deficiency, unspecified; E11.9 Type 2 diabetes mellitus without complications

== ENCOUNTER → 2023-03-02 | Outpatient (CLI) | payer BC ==
[~2023-03-02] MED LIST changes: +EZET10TA58 PO; -K-TA10TA2 PO; +POTA-165 PO; -ZETI10TA16 PO
[2023-03-02 12:55] LABS: HEMATOCRIT 44.4 % (36.0-47.0); HEMOGLOBIN 14.1 g/dl (12.0-15.5); MEAN CORPUSCULAR HEMOGLOBIN 30.1 pg (27.0-33.0); MEAN CORPUSCULAR HGB CONC 31.8 g/dl (32.0-36.5); MEAN CORPUSCULAR VOLUME 94.9 fl (80.0-96.0); PLATELET COUNT, AUTOMATED 136 10^3/uL (150-450); RED BLOOD COUNT 4.68 10^6/uL (4.00-5.40); WHITE BLOOD COUNT 6.8 10^3/uL (4.0-10.0)
[2023-03-02 13:21] LABS: ALBUMIN 3.1 G/DL (3.2-5.2); BILIRUBIN,TOTAL 0.6 MG/DL (0.3-1.2); CALCIUM LEVEL 8.5 MG/DL (8.5-10.1); CHOLESTEROL RISK RATIO 3.6 (<5); CREATININE FOR GFR 4.74 MG/DL (0.55-1.30); GLOMERULAR FILTRATION RATE 10.2 (>51); HDL CHOLESTEROL 33.8 MG/DL (>40); LDL CHOLESTEROL 60.6 MG/DL (<100); NON-HDL-C 88.2 MG/DL; POTASSIUM SERUM 4.3 MMOL/L (3.5-5.1); TOTAL 25(OH) VITAMIN D 57.1 NG/ML (20.0-100.0); TOTAL PROTEIN 6.3 G/DL (5.7-8.2)
[2023-03-02 13:22] LABS: THYROID STIMULATING HORMONE 0.134 uIU/ML (0.55-4.78)
[2023-03-02 13:23] LABS: FREE T4 1.49 NG/DL (0.89-1.76)
== END ==
LOC: M LAB 11:54
PROVIDERS: ATTEND Nurse Practitioner Family
DX: I10 Essential (primary) hypertension (principal)

== ENCOUNTER → 2023-03-03 | Outpatient (CLI) | payer BC ==
[2023-03-03 14:34] LABS: HEMOGLOBIN A1c 6.5 % (4.0-6.0)
== END ==
LOC: M LAB 13:40
PROVIDERS: ATTEND Nurse Practitioner Family
DX: E11.9 Type 2 diabetes mellitus without complications (principal)

== ENCOUNTER → 2023-06-22 | Outpatient (CLI) | payer BC ==
[~2023-06-22] MED LIST changes: +CEFD1CAP9 PO; -CEFD300C41 PO
[2023-06-22 12:16] LABS: BASO # 0.1 10^3/uL (0.0-0.2); BASO % 0.9 % (0.0-1.0); EOS # 0.5 10^3/uL (0.0-0.5); EOS % 8.3 % (0.0-3.0); HEMATOCRIT 42.6 % (36.0-47.0); HEMOGLOBIN 14.1 g/dl (12.0-15.5); LYMPH # 2.3 10^3/uL (1.5-5.0); LYMPH % 35.7 % (24.0-44.0); MEAN CORPUSCULAR HEMOGLOBIN 30.7 pg (27.0-33.0); MEAN CORPUSCULAR HGB CONC 33.1 g/dl (32.0-36.5); MEAN CORPUSCULAR VOLUME 92.6 fl (80.0-96.0); MONO # 0.4 10^3/uL (0.0-0.8); MONO % 5.8 % (2.0-8.0); NEUTROPHILS # 3.2 10^3/uL (1.5-8.5); PLATELET COUNT, AUTOMATED 113 10^3/uL (150-450); WHITE BLOOD COUNT 6.5 10^3/uL (4.0-10.0)
[2023-06-22 12:34] LABS: CREATININE, URINE 144.8 MG/DL
[2023-06-22 12:35] LABS: ALBUMIN 3.1 G/DL (3.2-5.2); BILIRUBIN,TOTAL 0.5 MG/DL (0.3-1.2); CALCIUM LEVEL 9.2 MG/DL (8.5-10.1); CHOLESTEROL RISK RATIO 3.71 (<5); CREATININE FOR GFR 5.64 MG/DL (0.55-1.30); GLOMERULAR FILTRATION RATE 8.3 (>51); HDL CHOLESTEROL 28.8 MG/DL (>40); NON-HDL-C 78.2 MG/DL; POTASSIUM SERUM 4.3 MMOL/L (3.5-5.1); TOTAL PROTEIN 6.1 G/DL (5.7-8.2)
[2023-06-22 12:35] LABS: MAU/CREAT RATIO 6.2 MCG/MG (0.0-30.0)
[2023-06-22 12:36] LABS: THYROID STIMULATING HORMONE 0.394 uIU/ML (0.55-4.78)
[2023-06-22 12:37] LABS: FREE T4 1.34 NG/DL (0.89-1.76)
[2023-06-22 12:40] LABS: HEMOGLOBIN A1c 6.1 % (4.0-6.0)
== END ==
LOC: M LAB 11:11
PROVIDERS: ATTEND Nurse Practitioner Family
DX: E55.9 Vitamin D deficiency, unspecified (principal); E11.9 Type 2 diabetes mellitus without complications

== ENCOUNTER → 2023-11-18 | Outpatient (CLI) | payer BC, MEDICARE ==
[~2023-11-18] MED LIST changes: +BUPR-597 PO; -BUPR300T92 PO; +COMB0.2S OU; +GASTROGRAFIN SOLUTION 30ML As Ordered ONE; -GLIM1TAB4 PO; +GLIM1TAB84 PO; +ISOVUE-370 76% 100ML VIAL As Ordered ONE; +LEVO100T5; +MELA10CA6 PO; +SYNT100T PO; +TIRZ2.5P SC; +XALA0.007 OU; +[UNRECOGNIZED DRUG - OTHER]
== END ==
LOC: M RAD 07:58
PROVIDERS: ATTEND Nurse Practitioner Family
DX: R10.814 Left lower quadrant abdominal tenderness (principal)

== ENCOUNTER → 2023-11-22 | Outpatient (REF) | payer BC, MEDICARE ==
[~2023-11-22] MED LIST changes: -GASTROGRAFIN SOLUTION 30ML As Ordered ONE; -ISOVUE-370 76% 100ML VIAL As Ordered ONE
== END ==
LOC: M LAB REF 17:00
PROVIDERS: ATTEND Nurse Practitioner Family
DX: R19.7 Diarrhea, unspecified (principal)

== ENCOUNTER → 2023-12-02 | Outpatient (REF) | payer BC, MEDICARE ==
[2023-12-02 18:30] LABS: HEPATITIS B SURFACE ANTIBODY NEGATIVE (POSITIVE)
[2023-12-02 18:41] LABS: HEPATITIS B SURFACE ANTIGEN NEGATIVE (NEGATIVE)
[2023-12-02 19:02] LABS: HEPATITIS B CORE ANTIBODY IGM NEGATIVE (NEGATIVE); HEPATITIS C VIRUS ABY INDEX < 0.02 INDEX (<0.8)
== END ==
LOC: M LAB REF 17:03
PROVIDERS: ATTEND Nurse Practitioner Family
DX: N18.6 End stage renal disease (principal)

== ENCOUNTER → 2024-01-02 | Outpatient (CLI) | payer BC, MEDICARE ==
[2024-01-02 12:47] LABS: HEMATOCRIT 37.6 % (36.0-47.0); HEMOGLOBIN 12.3 g/dl (12.0-15.5); MEAN CORPUSCULAR HEMOGLOBIN 28.8 pg (27.0-33.0); MEAN CORPUSCULAR HGB CONC 32.7 g/dl (32.0-36.5); MEAN CORPUSCULAR VOLUME 88.1 fl (80.0-96.0); PLATELET COUNT, AUTOMATED 102 10^3/uL (150-450); RED BLOOD COUNT 4.27 10^6/uL (4.00-5.40); WHITE BLOOD COUNT 5.6 10^3/uL (4.0-10.0)
[2024-01-02 13:15] LABS: CALCIUM LEVEL 8.6 MG/DL (8.5-10.1); CREATININE FOR GFR 4.78 MG/DL (0.55-1.30); POTASSIUM SERUM 3.8 MMOL/L (3.5-5.1)
== END ==
LOC: M LAB 11:29
PROVIDERS: ATTEND Nurse Practitioner Family
DX: I10 Essential (primary) hypertension (principal); E11.9 Type 2 diabetes mellitus without complications

== ENCOUNTER 2024-01-12 10:43 | Day surgery (SDC) | payer BC, MEDICARE ==
[~2024-01-12] VITALS: Ht 162.6 cm; Wt 13351.9 kg
[2024-01-12] MEDS: NS 1,000 ML IV ONE (11:23)
[2024-01-12 12:41] VITALS: TEMP 98.1
[2024-01-12 13:03] VITALS: BP 107/51; O2SAT 99
== END 2024-01-12 13:19 | disposition home or self-care (01) ==
LOC: M OPP 10:43
PROVIDERS: ATTEND Surgery
DX: K63.5 Polyp of colon (principal); R93.3 Abnormal findings on diagnostic imaging of other parts of digestive tract; Z86.010 Personal history of colon polyps; R19.7 Diarrhea, unspecified; Z99.2 Dependence on renal dialysis; N18.6 End stage renal disease; Z79.02 Long term (current) use of antithrombotics/antiplatelets; Z79.51 Long term (current) use of inhaled steroids; Z79.890 Hormone replacement therapy; Z79.899 Other long term (current) drug therapy; Z79.891 Long term (current) use of opiate analgesic; E11.9 Type 2 diabetes mellitus without complications; G47.30 Sleep apnea, unspecified; Z99.89 Dependence on other enabling machines and devices

== ENCOUNTER → 2024-03-16 | Outpatient (CLI) | payer BC, MEDICARE ==
[2024-03-23 21:38] LABS: TESTOSTERONE FREE (DIRECT) 13.3 pg/mL (0.1-6.4)
== END ==
LOC: M PLALAB 11:39
PROVIDERS: ATTEND Internal Medicine Endocrinology, Diabetes & Metabolism
DX: L65.9 Nonscarring hair loss, unspecified (principal)

== ENCOUNTER → 2024-04-26 | Outpatient (CLI) | payer MEDICARE, BC ==
[~2024-04-26] MED LIST changes: +BIOT1TAB6 PO; +CRES40TA PO; +HEPARIN 1,000UNITS/ML 10ML VIAL (FOR RADIOLOGY & DIALYSIS ONLY) As Ordered ONE; +ISOVUE-300 61% 100ML VIAL As Ordered ONE; +LIDOCAINE 1% MDV 20ML VIAL As Ordered ONE; +MELA5TAB47 PO; +MIDAZOLAM INJ 2MG/2ML VIAL As Ordered ONE; +MIRA3350 PO; +NICO10SP; +NS (Normal Saline) 0.9% 1,000 ML IV SCH; +PRIL20TA2 PO; +WELLTAB40 PO; +fentaNYL 100 MCG/2 ML INJECTION As Ordered ONE
[2024-04-26 09:55] VITALS: TEMP 96.3
[2024-04-26 13:00] VITALS: BP 100/65; O2SAT 100
== END ==
LOC: M IRPRO 09:41
PROVIDERS: ATTEND Internal Medicine Nephrology
DX: N18.6 End stage renal disease (principal)
CPT/HCPCS: 36902; 99152; 99153; C1769; C1894; C2623; J2250; J3010; Q9967

== ENCOUNTER → 2024-06-02 | Outpatient (CLI) | payer BC, MEDICARE ==
[~2024-06-02] MED LIST changes: -HEPARIN 1,000UNITS/ML 10ML VIAL (FOR RADIOLOGY & DIALYSIS ONLY) As Ordered ONE; -ISOVUE-300 61% 100ML VIAL As Ordered ONE; -LIDOCAINE 1% MDV 20ML VIAL As Ordered ONE; -MIDAZOLAM INJ 2MG/2ML VIAL As Ordered ONE; -NS (Normal Saline) 0.9% 1,000 ML IV SCH; -fentaNYL 100 MCG/2 ML INJECTION As Ordered ONE
[2024-06-02 13:23] LABS: BASO # 0.1 10^3/uL (0.0-0.2); BASO % 0.7 % (0.0-1.0); EOS # 0.4 10^3/uL (0.0-0.5); EOS % 5.8 % (0.0-3.0); HEMATOCRIT 36.9 % (36.0-47.0); HEMOGLOBIN 11.9 g/dl (12.0-15.5); LYMPH # 2.7 10^3/uL (1.5-5.0); LYMPH % 39.1 % (24.0-44.0); MEAN CORPUSCULAR HEMOGLOBIN 29.6 pg (27.0-33.0); MEAN CORPUSCULAR HGB CONC 32.2 g/dl (32.0-36.5); MEAN CORPUSCULAR VOLUME 91.8 fl (80.0-96.0); MONO # 0.5 10^3/uL (0.0-0.8); MONO % 7.8 % (2.0-8.0); NEUTROPHILS # 3.1 10^3/uL (1.5-8.5); NEUTROPHILS % 46.5 % (36.0-66.0); PLATELET COUNT, AUTOMATED 127 10^3/uL (150-450); RED BLOOD COUNT 4.02 10^6/uL (4.00-5.40); WHITE BLOOD COUNT 6.8 10^3/uL (4.0-10.0)
[2024-06-02 13:32] LABS: ALBUMIN 2.6 G/DL (3.2-5.2); BILIRUBIN,TOTAL 0.4 MG/DL (0.3-1.2); CALCIUM LEVEL 9.4 MG/DL (8.5-10.1); CHOLESTEROL RISK RATIO 4.01 (<5); CREATININE FOR GFR 6.03 MG/DL (0.55-1.30); GLOMERULAR FILTRATION RATE 7.7 (>51); HDL CHOLESTEROL 24.4 MG/DL (>40); LDL CHOLESTEROL 52.6 MG/DL (<100); NON-HDL-C 73.6 MG/DL; POTASSIUM SERUM 5.4 MMOL/L (3.5-5.1); THYROID STIMULATING HORMONE 3.324 uIU/ML (0.55-4.78); TOTAL 25(OH) VITAMIN D 87.8 NG/ML (20.0-100.0); TOTAL PROTEIN 6.2 G/DL (5.7-8.2)
[2024-06-02 13:33] LABS: FREE T4 1.4 NG/DL (0.89-1.76)
[2024-06-02 13:42] LABS: HEMOGLOBIN A1c 4.9 % (4.0-6.0)
== END ==
LOC: M PLALAB 09:44
PROVIDERS: ATTEND Nurse Practitioner Family
DX: E11.9 Type 2 diabetes mellitus without complications (principal); E03.9 Hypothyroidism, unspecified; E55.9 Vitamin D deficiency, unspecified

== ENCOUNTER → 2024-07-21 | Outpatient (CLI) | payer BC, MEDICARE | LOC: M WHC 09:35 | PROVIDERS: ATTEND Nurse Practitioner Family | DX: Z12.31 Encounter for screening mammogram for malignant neoplasm of breast (principal) ==

== ENCOUNTER → 2024-10-12 | Outpatient (CLI) | payer BC, MEDICARE ==
[~2024-10-12] MED LIST changes: -BUPR-597 PO; +BUPR-766 PO
== END ==
LOC: M PLAIMG 10:47
PROVIDERS: ATTEND Nurse Practitioner Family
DX: Z01.818 Encounter for other preprocedural examination (principal)

== ENCOUNTER → 2025-02-08 | Outpatient (REF) | payer BC, MEDICARE ==
[2025-02-08 17:42] LABS: APPEARANCE, URINE CLOUDY (CLEAR); BACTERIA, URINE AUTO 1+ (NEGATIVE); BILIRUBIN, URINE AUTO 1+ (NEGATIVE); BLOOD, URINE BLOOD NEGATIVE (NEGATIVE); GLUCOSE, URINE (UA) AUTO NEGATIVE (NEGATIVE); KETONE, URINE AUTO NEGATIVE (NEGATIVE); LEUKOCYTE ESTERASE, URINE AUTO 3+ (NEGATIVE); MUCUS, URINE SMALL (NEGATIVE); NITRITE, URINE AUTO NEGATIVE (NEGATIVE); PROTEIN, URINE AUTO 2+ mg/dL (NEGATIVE); RBC, URINE AUTO 5 /HPF (0-3); SPECIFIC GRAVITY URINE AUTO 1.016 (1.002-1.035); SQUAMOUS EPITHELIAL CELL UR AU TNTC /HPF (0-6); TRANSITIONAL EPITHELIAL AUTO 1 /HPF; UROBILINOGEN, URINE AUTO 2.0 mg/dL (0.0-2.0); WBC, URINE AUTO 102 /HPF (0-3)
== END ==
LOC: M LAB REF 16:41
PROVIDERS: ATTEND Nurse Practitioner Family
DX: N39.0 Urinary tract infection, site not specified (principal)

== ENCOUNTER → 2025-02-13 | Outpatient (REF) | LOC: EDSTATUS 02-01 10:30 → M PLAIMG 11:41 | PROVIDERS: ATTEND Nurse Practitioner Family | DX: Z01.818 Encounter for other preprocedural examination (principal) ==

== ENCOUNTER → 2025-02-13 | Outpatient (CLI) | payer BC, MEDICARE ==
[~2025-02-13] MED LIST changes: +BRIM5DRO4 OU; +CICL6.6S TOP; +ESTR1CAP2 PO; +FLUC150T9 PO; +LATANOPROST; +LEVO125T4 PO; +MIDO5TA PO; +OMEP-173 PO; +RENATAB5 PO; +ROSU10TA61 PO
[2025-02-13 15:49] LABS: ALT/SGPT 37.0 U/L (7.0-40); AST/SGOT 50.0 U/L (<34)
== END ==
LOC: M PLALAB 13:06
PROVIDERS: ATTEND Nurse Practitioner Family
DX: R10.13 Epigastric pain (principal); N18.6 End stage renal disease; R11.2 Nausea with vomiting, unspecified

== ENCOUNTER 2025-02-23 08:22 | Inpatient (IN) | payer BC, MEDICARE ==
[~2025-02-23] VITALS: Ht 162.6 cm; Wt 132.3 kg
[~2025-02-23 08:22] MED LIST changes: -BRIM5DRO4 OU; -CICL6.6S TOP; -ESTR1CAP2 PO; -FLUC150T9 PO; -LATANOPROST; -LEVO125T4 PO; -MIDO5TA PO; -OMEP-173 PO; -RENATAB5 PO; -ROSU10TA61 PO
[2025-02-23] MEDS ORDERED: LATANOPROST (08:41)
[2025-02-23] MEDS ORDERED: BRIM5DRO4 OU (08:41)
[2025-02-23] MEDS ORDERED: LEVO125T4 PO (08:41)
[2025-02-23 09:10] LABS: BASO # 0.0 10^3/uL (0.0-0.2); BASO % 0.6 % (0.0-1.0); EOS # 0.3 10^3/uL (0.0-0.5); EOS % 4.8 % (0.0-3.0); LYMPH # 1.2 10^3/uL (1.5-5.0); LYMPH % 17.3 % (24.0-44.0); MONO # 0.4 10^3/uL (0.0-0.8); MONO % 5.8 % (2.0-8.0); NEUTROPHILS # 4.9 10^3/uL (1.5-8.5); NEUTROPHILS % 71.2 % (36.0-66.0); PLATELET COUNT, AUTOMATED 100 10^3/uL (150-450)
[2025-02-23 09:22] LABS: INR 1.09
[2025-02-23] MEDS: NS 500 ML IV ONE ×2 (09:27→12:07)
[2025-02-23 09:53] LABS: ALT/SGPT 36.0 U/L (7.0-40); AST/SGOT 62.0 U/L (<34); CALCIUM LEVEL 8.3 MG/DL (8.5-10.1); CARBON DIOXIDE LEVEL 32.0 MMOL/L (20-31); CHLORIDE LEVEL 98.0 MMOL/L (98-107); CREATININE FOR GFR 5.91 MG/DL (0.55-1.30); GLOMERULAR FILTRATION RATE 7.8 (>51); POTASSIUM SERUM 4.3 MMOL/L (3.5-5.1); SODIUM LEVEL 141.0 MMOL/L (136-145)
[2025-02-23] MEDS ORDERED: NS (Normal Saline) 0.9% 1,000 ML IV ONE (12:30)
[2025-02-23] MEDS ORDERED: CEFEPIME HCL 2 GM in DEXTROSE 5% (D5W) ADV/MINI-BAG 50 ML IV ONE (13:15)
[2025-02-23 14:41] LABS: KETONE, URINE AUTO RFX TRACE mg/dL (NEGATIVE); MUCUS, URINE RFX SMALL (NEGATIVE); NITRITE, URINE AUTO RFX NEGATIVE (NEGATIVE); RBC, URINE AUTO RFX 3 /HPF (0-3); SQUAM EPITHELIAL CELL UR AURFX 36 /HPF (0-6)
[2025-02-23 14:42] LABS: LEUKOCYTE ESTERASE UR AUTO RFX 1+ (NEGATIVE); WBC, URINE AUTO RFX 32 /HPF (0-3)
[2025-02-23] MEDS ORDERED: OMEP-173 PO (14:51)
[2025-02-23] MEDS ORDERED: ESTR1CAP2 PO (14:51)
[2025-02-23] MEDS ORDERED: ROSU10TA61 PO (14:51)
[2025-02-23] MEDS ORDERED: RENATAB5 PO (14:51)
[2025-02-23] MEDS ORDERED: FLUC150T9 PO (14:51)
[2025-02-23] MEDS ORDERED: CICL6.6S TOP (14:51)
[2025-02-23] MEDS ORDERED: HOME MED LIST COMPLETE! XX SCH (14:55)
[2025-02-23] MEDS: CEFEPIME HCL 1 GM in DEXTROSE 5% (D5W) ADV/MINI-BAG 50 ML IV ONE (15:20)
[2025-02-23] MEDS: [UNRECOGNIZED DRUG - OTHER] IV STA (15:23)
[2025-02-23] MEDS: NS 0.9% IV STA (15:23)
[2025-02-23] MEDS: MIDODRINE 5 MG TAB PO SCH (16:51)
[2025-02-23] MEDS ORDERED: ULTRACET TAB PO PRN (17:45)
[2025-02-23] MEDS: LATANOPROST 0.005% OPHTH SOLN 2.5 ML OU SCH (21:00)
[2025-02-23 21:10] VITALS: BP 96/53; TEMP 96.8; O2SAT 100
[2025-02-23] MEDS: MONTELUKAST 10 MG TAB PO SCH (21:26)
[2025-02-23] MEDS: DOCUSATE SODIUM 100 MG CAPSULE PO SCH (21:26)
[2025-02-23] MEDS: EZETIMIBE 10 MG TABLET PO SCH (21:27)
[2025-02-23] MEDS: ROSUVASTATIN 10 MG TAB PO SCH (21:27)
[2025-02-23] MEDS: ACETAMINOPHEN 325 MG TAB PO ONE (22:31)
[2025-02-24] VITALS (8 sets, daily range): BP systolic 70–132; BP diastolic 38–90; TEMP 96.7–97.3; O2SAT 96–100
[2025-02-24] MEDS: LEVOTHYROXINE 125 MCG TABLET (0.125 MG) PO SCH (05:45)
[2025-02-24 06:21] LABS: BASO # 0.0 10^3/uL (0.0-0.2); BASO % 0.5 % (0.0-1.0); EOS # 0.6 10^3/uL (0.0-0.5); EOS % 7.3 % (0.0-3.0); LYMPH # 1.9 10^3/uL (1.5-5.0); LYMPH % 23.4 % (24.0-44.0); MONO # 0.9 10^3/uL (0.0-0.8); MONO % 10.7 % (2.0-8.0); NEUTROPHILS # 4.8 10^3/uL (1.5-8.5); NEUTROPHILS % 57.9 % (36.0-66.0); PLATELET COUNT, AUTOMATED 124 10^3/uL (150-450)
[2025-02-24 08:39] LABS: CALCIUM LEVEL 8.3 MG/DL (8.5-10.1); CARBON DIOXIDE LEVEL 31.0 MMOL/L (20-31); CHLORIDE LEVEL 101.0 MMOL/L (98-107); CREATININE FOR GFR 7.61 MG/DL (0.55-1.30); GLOMERULAR FILTRATION RATE 5.8 (>51); POTASSIUM SERUM 4.4 MMOL/L (3.5-5.1); SODIUM LEVEL 142.0 MMOL/L (136-145)
[2025-02-24] MEDS: OMEPRAZOLE 20MG CAP PO SCH (08:57)
[2025-02-24] MEDS: buPROPion **XL** 150 MG TABLET PO SCH (08:57)
[2025-02-24] MEDS ORDERED: MIDO5TA PO (10:46)
== END 2025-02-24 15:39 | disposition home or self-care (01) | DRG 251 ==
LOC: EDSEX 08:22 → M ED 08:22 → EDBD 08:22 → M ED INP 17:10 → M PCU 21:02
PROVIDERS: ADMIT Internal Medicine Nephrology; ATTEND Internal Medicine Nephrology
DX: R10.31 Right lower quadrant pain (principal); N18.6 End stage renal disease; E87.20 Acidosis, unspecified; Q61.2 Polycystic kidney, adult type; R18.8 Other ascites; I95.3 Hypotension of hemodialysis; E11.22 Type 2 diabetes mellitus with diabetic chronic kidney disease; E66.01 Morbid (severe) obesity due to excess calories; Q44.6 Cystic disease of liver; K74.60 Unspecified cirrhosis of liver; R10.32 Left lower quadrant pain; E03.9 Hypothyroidism, unspecified; E78.5 Hyperlipidemia, unspecified; H40.9 Unspecified glaucoma; K57.90 Diverticulosis of intestine, part unspecified, without perforation or abscess without bleeding; Z68.43 Body mass index [BMI] 50.0-59.9, adult; Z86.0101 Personal history of adenomatous and serrated colon polyps; Z91.013 Allergy to seafood; Z91.018 Allergy to other foods; Z79.890 Hormone replacement therapy; Z79.899 Other long term (current) drug therapy; Z99.2 Dependence on renal dialysis; Z90.49 Acquired absence of other specified parts of digestive tract

== ENCOUNTER → 2025-03-16 | Outpatient (REF) | payer BC, MEDICARE ==
[~2025-03-16] MED LIST changes: +BRIM5DRO4 OU; +CICL6.6S TOP; +ESTR1CAP2 PO; +FLUC150T9 PO; +LATANOPROST; +LEVO125T4 PO; +MIDO5TA PO; +OMEP-173 PO; +RENATAB5 PO; +ROSU10TA61 PO
[2025-03-16 17:33] LABS: APPEARANCE, URINE CLOUDY (CLEAR); BACTERIA, URINE AUTO 3+ (NEGATIVE); BILIRUBIN, URINE AUTO NEGATIVE (NEGATIVE); BLOOD, URINE BLOOD NEGATIVE (NEGATIVE); GLUCOSE, URINE (UA) AUTO NEGATIVE (NEGATIVE); KETONE, URINE AUTO NEGATIVE (NEGATIVE); LEUKOCYTE ESTERASE, URINE AUTO 2+ (NEGATIVE); NITRITE, URINE AUTO NEGATIVE (NEGATIVE); PROTEIN, URINE AUTO 1+ mg/dL (NEGATIVE); RBC, URINE AUTO 0 /HPF (0-3); SPECIFIC GRAVITY URINE AUTO 1.014 (1.002-1.035); SQUAMOUS EPITHELIAL CELL UR AU 29 /HPF (0-6); UROBILINOGEN, URINE AUTO 2.0 mg/dL (0.0-2.0); WBC, URINE AUTO 158 /HPF (0-3)
== END ==
LOC: M LAB REF 16:38
PROVIDERS: ATTEND Physician Assistant
DX: N39.0 Urinary tract infection, site not specified (principal)

== ENCOUNTER → 2025-04-10 | Outpatient (CLI) | payer BC, MEDICARE ==
[~2025-04-10] MED LIST changes: -ROSU10TA61 PO; +ROSU10TA90 PO
[2025-04-10 11:20] LABS: CPK CREATINE PHOSPHOKINASE 97.0 U/L (34-145)
[2025-04-10 11:24] LABS: FREE T4 1.23 NG/DL (0.89-1.76); TOTAL 25(OH) VITAMIN D 58.7 NG/ML (20.0-100.0)
[2025-04-10 11:27] LABS: ESTIMATED AVERAGE GLUCOSE 97.0 MG/DL (60-110)
[2025-04-10 11:31] LABS: BASO # 0.1 10^3/uL (0.0-0.2); BASO % 0.9 % (0.0-1.0); EOS # 0.6 10^3/uL (0.0-0.5); EOS % 9.8 % (0.0-3.0); LYMPH # 1.7 10^3/uL (1.5-5.0); LYMPH % 25.7 % (24.0-44.0); MONO # 0.6 10^3/uL (0.0-0.8); MONO % 9.2 % (2.0-8.0); NEUTROPHILS # 3.5 10^3/uL (1.5-8.5); NEUTROPHILS % 54.1 % (36.0-66.0); PLATELET COUNT, AUTOMATED 102 10^3/uL (150-450)
[2025-04-10 11:35] LABS: ALT/SGPT 32.0 U/L (7.0-40); AST/SGOT 55.0 U/L (<34); CALCIUM LEVEL 9.1 MG/DL (8.5-10.1); CARBON DIOXIDE LEVEL 33.0 MMOL/L (20-31); CHLORIDE LEVEL 97.0 MMOL/L (98-107); CHOLESTEROL LEVEL 122.0 MG/DL (<200); CHOLESTEROL RISK RATIO 4.78 (<5); CREATININE FOR GFR 8.7 MG/DL (0.55-1.30); GLOMERULAR FILTRATION RATE 4.9 (>51); LDL CHOLESTEROL 76.3 MG/DL (<100); NON-HDL-C 96.5 MG/DL; POTASSIUM SERUM 4.5 MMOL/L (3.5-5.1); SODIUM LEVEL 140.0 MMOL/L (136-145); TRIGLYCERIDES LEVEL 101.0 MG/DL (<150)
== END ==
LOC: M PLALAB 08:27
PROVIDERS: ATTEND Nurse Practitioner Family
DX: E11.9 Type 2 diabetes mellitus without complications (principal); K59.00 Constipation, unspecified; E03.9 Hypothyroidism, unspecified; E55.9 Vitamin D deficiency, unspecified

== ENCOUNTER → 2025-04-10 | Outpatient (CLI) | payer BC, MEDICARE | LOC: M PLALAB 08:31 | PROVIDERS: ATTEND Student in an Organized Health Care Education/Training Program | DX: K92.1 Melena (principal) ==

== ENCOUNTER → 2025-04-11 | Outpatient (CLI) | payer MEDICARE, BC ==
[2025-04-11 16:58] LABS: BASO # 0.1 10^3/uL (0.0-0.2); BASO % 0.8 % (0.0-1.0); EOS # 0.7 10^3/uL (0.0-0.5); EOS % 10.0 % (0.0-3.0); LYMPH # 2.1 10^3/uL (1.5-5.0); LYMPH % 27.7 % (24.0-44.0); MONO # 0.6 10^3/uL (0.0-0.8); MONO % 7.4 % (2.0-8.0); NEUTROPHILS # 4.0 10^3/uL (1.5-8.5); NEUTROPHILS % 54.0 % (36.0-66.0); PLATELET COUNT, AUTOMATED 118 10^3/uL (150-450)
[2025-04-11 17:09] LABS: ESTIMATED AVERAGE GLUCOSE 97.0 MG/DL (60-110)
[2025-04-11 17:15] LABS: INR 1.07
[2025-04-11 17:23] LABS: CALCIUM LEVEL 8.4 MG/DL (8.5-10.1); CARBON DIOXIDE LEVEL 32.0 MMOL/L (20-31); CHLORIDE LEVEL 95.0 MMOL/L (98-107); CREATININE FOR GFR 10.08 MG/DL (0.55-1.30); GLOMERULAR FILTRATION RATE 4.1 (>51); POTASSIUM SERUM 4.5 MMOL/L (3.5-5.1); SODIUM LEVEL 138.0 MMOL/L (136-145)
== END ==
LOC: M PLALAB 15:04
PROVIDERS: ATTEND Urology
DX: N18.6 End stage renal disease (principal); Z79.899 Other long term (current) drug therapy

== ENCOUNTER 2025-05-06 17:38 | Emergency (ER) | payer BC, MEDICARE ==
[~2025-05-06] VITALS: Ht 162.6 cm; Wt 127.7 kg
[2025-05-06 17:44] VITALS: TEMP 98
[2025-05-06 18:48] LABS: BASO # 0.1 10^3/uL (0.0-0.2); BASO % 1.1 % (0.0-1.0); EOS # 0.8 10^3/uL (0.0-0.5); EOS % 12.4 % (0.0-3.0); LYMPH # 1.6 10^3/uL (1.5-5.0); LYMPH % 24.5 % (24.0-44.0); MONO # 0.6 10^3/uL (0.0-0.8); MONO % 9.6 % (2.0-8.0); NEUTROPHILS # 3.4 10^3/uL (1.5-8.5); NEUTROPHILS % 52.2 % (36.0-66.0); PLATELET COUNT, AUTOMATED 138 10^3/uL (150-450)
[2025-05-06 19:17] VITALS: BP 101/61
[2025-05-06 19:20] LABS: ALT/SGPT 14.0 U/L (7.0-40); AST/SGOT 54.0 U/L (<34); CALCIUM LEVEL 8.0 MG/DL (8.5-10.1); CARBON DIOXIDE LEVEL 27.0 MMOL/L (20-31); CHLORIDE LEVEL 98.0 MMOL/L (98-107); CREATININE FOR GFR 12.45 MG/DL (0.55-1.30); GLOMERULAR FILTRATION RATE 3.2 (>51); POTASSIUM SERUM 3.7 MMOL/L (3.5-5.1); SODIUM LEVEL 138.0 MMOL/L (136-145)
[2025-05-06 22:00] VITALS: O2SAT 100
== END 2025-05-07 00:18 | disposition home or self-care (01) ==
LOC: M ED 17:38
DX: T81.31XA Disruption of external operation (surgical) wound, not elsewhere classified, initial encounter (principal); R18.8 Other ascites; E11.9 Type 2 diabetes mellitus without complications; E78.5 Hyperlipidemia, unspecified; K21.9 Gastro-esophageal reflux disease without esophagitis; N18.6 End stage renal disease; Z91.013 Allergy to seafood; Z91.018 Allergy to other foods; Z79.899 Other long term (current) drug therapy

== ENCOUNTER 2025-06-08 07:41 | Inpatient (IN) | payer MEDICARE, BC ==
[~2025-06-08] VITALS: Ht 162.6 cm; Wt 127.3 kg
[~2025-06-08 07:41] MED LIST changes: -FLON1SPR; +FLON1SPR NARES
[2025-06-08] MEDS ORDERED: ISOVUE-370 76% 100 ML VIAL As Ordered ONE (08:09)
[2025-06-08] MEDS: buPROPion **XL** 150 MG TABLET PO SCH (09:00)
[2025-06-08] MEDS: CETIRIZINE 10 MG TAB PO SCH (09:00)
[2025-06-08 10:02] LABS: CK-MB VALUE MASS 1.1 NG/ML (<3.6); CPK CREATINE PHOSPHOKINASE 92.0 U/L (34-145); MB/CK RELATIVE INDEX 1.19 (< OR =4)
[2025-06-08 10:07] LABS: FREE T4 0.88 NG/DL (0.89-1.76)
[2025-06-08 10:07] LABS: INR 1.1
[2025-06-08 10:09] LABS: ALT/SGPT 17.0 U/L (7.0-40); AST/SGOT 48.0 U/L (<34); CALCIUM LEVEL 7.4 MG/DL (8.5-10.1); CARBON DIOXIDE LEVEL 25.0 MMOL/L (20-31); CHLORIDE LEVEL 96.0 MMOL/L (98-107); CREATININE FOR GFR 14.08 MG/DL (0.55-1.30); GLOMERULAR FILTRATION RATE 2.8 (>51); POTASSIUM SERUM 3.8 MMOL/L (3.5-5.1); SODIUM LEVEL 136.0 MMOL/L (136-145)
[2025-06-08] MEDS ORDERED: HEPARIN 1,000 UNITS/ML 10 ML VIAL (FOR RADIOLOGY & DIALYSIS ONLY) IV PRN (10:50)
[2025-06-08] MEDS ORDERED: SODIUM CHLORIDE 0.9% 1000 ML IV PRN (10:50)
[2025-06-08] MEDS ORDERED: LIDOCAINE 1% SDV 5 ML VIAL SC PRN (10:50)
[2025-06-08 10:52] LABS: VENOUS BASE EXCESS 0.0 (-2.0-2.0); VENOUS HCO3 24.7 MMOL/L (23.0-27.0); VENOUS O2 SATURATION 94.1 % (60.0-80.0); VENOUS PARTIAL PRESSURE CO2 40.4 mmHg (38.0-50.0); VENOUS PARTIAL PRESSURE O2 82.8 mmHg (30.0-50.0); VENOUS PH 7.404 UNITS (7.330-7.430); VENOUS STANDARD HCO3 24.4 MMOL/L; VENOUS TOTAL CO2 25.9 MMOL/L (24.0-28.0)
[2025-06-08 10:59] LABS: BASO # 0.1 10^3/uL (0.0-0.2); BASO % 0.8 % (0.0-1.0); EOS # 0.5 10^3/uL (0.0-0.5); EOS % 8.0 % (0.0-3.0); LYMPH # 1.6 10^3/uL (1.5-5.0); LYMPH % 25.4 % (24.0-44.0); MONO # 0.8 10^3/uL (0.0-0.8); MONO % 12.2 % (2.0-8.0); NEUTROPHILS # 3.3 10^3/uL (1.5-8.5); NEUTROPHILS % 53.4 % (36.0-66.0); PLATELET COUNT, AUTOMATED 103 10^3/uL (150-450)
[2025-06-08 11:27] LABS: CK-MB VALUE MASS 1.4 NG/ML (<3.6)
[2025-06-08 11:30] LABS: CPK CREATINE PHOSPHOKINASE 112.0 U/L (34-145); MB/CK RELATIVE INDEX 1.25 (< OR =4)
[2025-06-08] MEDS ORDERED: SEVE800T3 PO (14:10)
[2025-06-08] MEDS ORDERED: MIDO5TA PO (14:10)
[2025-06-08] MEDS ORDERED: HOME MED LIST COMPLETE! XX SCH (14:10)
[2025-06-08] MEDS ORDERED: LIDO30CR18 TOP (14:10)
[2025-06-08 14:42] VITALS: BP 96/53; TEMP 97.3; O2SAT 97
[2025-06-08] MEDS: MIDODRINE 5 MG TAB PO ONE (14:47)
[2025-06-08] MEDS ORDERED: MIRALAX *UNIT DOSE* 17 GM PACKET PO PRN (15:10)
[2025-06-08 16:37] VITALS: BP 88/48; TEMP 97.6; O2SAT 95
[2025-06-08] MEDS: MIDODRINE 5 MG TAB PO SCH (17:26)
[2025-06-08] MEDS: SEVELAMER *CARBONate* 800 MG TAB PO SCH (17:27)
[2025-06-08 20:14] VITALS: BP 113/54; TEMP 98.3; O2SAT 100
[2025-06-08] MEDS: MONTELUKAST 10 MG TAB PO SCH (21:02)
[2025-06-08] MEDS: EZETIMIBE 10 MG TABLET PO SCH (21:02)
[2025-06-08] MEDS: OMEPRAZOLE 20MG CAP PO SCH (21:02)
[2025-06-08] MEDS: LATANOPROST 0.005% OPHTH SOLN 2.5 ML OU SCH (21:03)
[2025-06-08] MEDS: HEPARIN SOD 5000 UNITS/ML 1 ML VIAL/SYRINGE SC SCH (21:03)
[2025-06-08] MEDS: ONDANSETRON 4MG/2ML VIAL IV ONE (21:55)
[2025-06-08 23:45] VITALS: BP 98/58; TEMP 97.9; O2SAT 98
[2025-06-09 04:06] VITALS: BP 91/50; TEMP 97.4; O2SAT 100
[2025-06-09] MEDS: LEVOTHYROXINE 125 MCG TABLET (0.125 MG) PO SCH (06:00)
[2025-06-09] MEDS ORDERED: HEPARIN 1,000 UNITS/ML 10 ML VIAL (FOR RADIOLOGY & DIALYSIS ONLY) IV PRN (06:00)
[2025-06-09] MEDS ORDERED: HEPARIN 1,000 UNITS/ML 10 ML VIAL (FOR RADIOLOGY & DIALYSIS ONLY) XX SCH (06:00)
[2025-06-09] MEDS ORDERED: SODIUM CHLORIDE 0.9% 1000 ML IV PRN (06:00)
[2025-06-09] MEDS ORDERED: LIDOCAINE 1% SDV 5 ML VIAL SC PRN (06:00)
[2025-06-09 06:11] LABS: PLATELET COUNT, AUTOMATED 155 10^3/uL (150-450)
[2025-06-09 06:40] LABS: ALT/SGPT 14.0 U/L (7.0-40); AST/SGOT 37.0 U/L (<34); CALCIUM LEVEL 7.8 MG/DL (8.5-10.1); CARBON DIOXIDE LEVEL 25.0 MMOL/L (20-31); CHLORIDE LEVEL 96.0 MMOL/L (98-107); CREATININE FOR GFR 14.92 MG/DL (0.55-1.30); GLOMERULAR FILTRATION RATE 2.6 (>51); POTASSIUM SERUM 4.2 MMOL/L (3.5-5.1); SODIUM LEVEL 137.0 MMOL/L (136-145)
[2025-06-09] MEDS: ONDANSETRON 4MG/2ML VIAL IV PRN (07:50)
[2025-06-09 07:55] VITALS: BP 114/53; TEMP 98.8; O2SAT 100
[2025-06-09] MEDS: FLUTICASONE PROPIONATE 0.05% NASAL SPRAY 16 GM SCH (08:47)
[2025-06-09] MEDS: HEPARIN 1,000 UNITS/ML 10 ML VIAL (FOR RADIOLOGY & DIALYSIS ONLY) XX SCH (10:37)
[2025-06-09 14:02] VITALS: BP 102/51; TEMP 98.2; O2SAT 100
[2025-06-09 15:22] LABS: ABG BASE EXCESS 6.8 (-2.0-2.0); ABG HCO3 29.2 MMOL/L (22.0-26.0); ABG O2 SATURATION 97.8 % (95.0-99.0); ABG PARTIAL PRESSURE CO2 33.4 mmHg (35.0-45.0); ABG PARTIAL PRESSURE O2 97.2 mmHg (75.0-100.0); ABG STANDARD HCO3 30.7 MMOL/L. (22.0-26.0); ABG TOTAL CO2 30.3 MMOL/L (22.0-29.0); ABG pH (ARTERIAL) 7.560 UNITS (7.350-7.450)
[2025-06-09 15:33] VITALS: BP 100/51; TEMP 97; O2SAT 95
[2025-06-09 15:45] LABS: PLATELET COUNT, AUTOMATED 164 10^3/uL (150-450)
[2025-06-09 16:07] LABS: CALCIUM LEVEL 7.9 MG/DL (8.5-10.1); CARBON DIOXIDE LEVEL 27.0 MMOL/L (20-31); CHLORIDE LEVEL 97.0 MMOL/L (98-107); CREATININE FOR GFR 9.09 MG/DL (0.55-1.30); GLOMERULAR FILTRATION RATE 4.7 (>51); POTASSIUM SERUM 3.8 MMOL/L (3.5-5.1); SODIUM LEVEL 137.0 MMOL/L (136-145)
[2025-06-09] MEDS: LACTULOSE 20 GM/30 ML SYRUP UDC PR ONE ×2 (16:30→18:49)
[2025-06-09 19:34] VITALS: BP 98/52; TEMP 98.2; O2SAT 100
[2025-06-09 23:36] VITALS: BP 102/54; TEMP 97.9; O2SAT 100
[2025-06-10 03:29] VITALS: BP 96/52; TEMP 98.4; O2SAT 97
[2025-06-10 05:05] LABS: BASO # 0.1 10^3/uL (0.0-0.2); BASO % 0.8 % (0.0-1.0); EOS # 0.4 10^3/uL (0.0-0.5); EOS % 5.0 % (0.0-3.0); LYMPH # 2.2 10^3/uL (1.5-5.0); LYMPH % 26.5 % (24.0-44.0); MONO # 0.9 10^3/uL (0.0-0.8); MONO % 10.7 % (2.0-8.0); NEUTROPHILS # 4.8 10^3/uL (1.5-8.5); NEUTROPHILS % 56.6 % (36.0-66.0); PLATELET COUNT, AUTOMATED 138 10^3/uL (150-450)
[2025-06-10 05:29] LABS: IRON (FE) 60.0 UG/DL (50-170); PERCENT SATURATION 21.4 % (13.2-45.0)
[2025-06-10 05:39] LABS: ALT/SGPT 12.0 U/L (7.0-40); AST/SGOT 34.0 U/L (<34); CALCIUM LEVEL 8.2 MG/DL (8.5-10.1); CARBON DIOXIDE LEVEL 23.0 MMOL/L (20-31); CHLORIDE LEVEL 97.0 MMOL/L (98-107); CREATININE FOR GFR 10.35 MG/DL (0.55-1.30); GLOMERULAR FILTRATION RATE 4.0 (>51); PHOSPHORUS LEVEL 6.2 MG/DL (2.5-4.9); POTASSIUM SERUM 3.7 MMOL/L (3.5-5.1); SODIUM LEVEL 137.0 MMOL/L (136-145)
[2025-06-10] MEDS ORDERED: SODIUM CHLORIDE 0.9% 1000 ML IV PRN (06:00)
[2025-06-10] MEDS ORDERED: LIDOCAINE 1% SDV 5 ML VIAL SC PRN (06:00)
[2025-06-10] MEDS ORDERED: HEPARIN 1,000 UNITS/ML 10 ML VIAL (FOR RADIOLOGY & DIALYSIS ONLY) IV PRN (06:00)
[2025-06-10 07:38] VITALS: BP 96/56; TEMP 98.1; O2SAT 99
[2025-06-10] MEDS: HEPARIN 1,000 UNITS/ML 10 ML VIAL (FOR RADIOLOGY & DIALYSIS ONLY) XX SCH (09:43)
[2025-06-10 13:24] VITALS: BP 98/62; TEMP 97.5; O2SAT 100
[2025-06-10] MEDS: cefTRIAXone SOD 1 GM in DEXTROSE 5% (D5W) ADV/MINI-BAG 50 ML IV SCH (15:55)
[2025-06-10 16:10] VITALS: BP 100/60; TEMP 97.8; O2SAT 100
[2025-06-10 19:21] VITALS: BP 93/57; TEMP 98.6; O2SAT 94
[2025-06-10 23:19] VITALS: BP 100/48; TEMP 98.1; O2SAT 96
[2025-06-11] VITALS (7 sets, daily range): BP systolic 98–118; BP diastolic 49–57; TEMP 97–98.6; O2SAT 96–100
[2025-06-11 06:05] LABS: BASO # 0.1 10^3/uL (0.0-0.2); BASO % 0.7 % (0.0-1.0); EOS # 0.5 10^3/uL (0.0-0.5); EOS % 5.6 % (0.0-3.0); LYMPH # 3.3 10^3/uL (1.5-5.0); LYMPH % 39.0 % (24.0-44.0); MONO # 1.0 10^3/uL (0.0-0.8); MONO % 12.0 % (2.0-8.0); NEUTROPHILS # 3.5 10^3/uL (1.5-8.5); NEUTROPHILS % 42.5 % (36.0-66.0); PLATELET COUNT, AUTOMATED 129 10^3/uL (150-450)
[2025-06-11 06:37] LABS: CALCIUM LEVEL 7.9 MG/DL (8.5-10.1); CARBON DIOXIDE LEVEL 28.0 MMOL/L (20-31); CHLORIDE LEVEL 98.0 MMOL/L (98-107); CREATININE FOR GFR 7.23 MG/DL (0.55-1.30); GLOMERULAR FILTRATION RATE 6.1 (>51); PHOSPHORUS LEVEL 4.5 MG/DL (2.5-4.9); POTASSIUM SERUM 3.3 MMOL/L (3.5-5.1); SODIUM LEVEL 139.0 MMOL/L (136-145)
[2025-06-11] MEDS: POTASSIUM CHLORIDE 10MEQ SR TABLET PO ONE ×2 (10:00→22:37)
[2025-06-11 10:44] LABS: APPEARANCE, BODY FLUID CLEAR (CLEAR); ASCITES FL COLOR PALE YELLOW (COLORLESS); SOURCE, BODY FLUID ASCITES
[2025-06-11] MEDS: LACTULOSE 20 GM/30 ML SYRUP UDC PO PRN (11:13)
[2025-06-11] MEDS: MIDODRINE 5 MG TAB PO SCH (12:58)
[2025-06-11 13:40] LABS: KETONE, URINE AUTO RFX NEGATIVE (NEGATIVE); NITRITE, URINE AUTO RFX NEGATIVE (NEGATIVE); RBC, URINE AUTO RFX 19 /HPF (0-3); SQUAM EPITHELIAL CELL UR AURFX 70 /HPF (0-6); YEAST LIKE CELL URINE AUTO RFX MODERATE
[2025-06-11 13:51] LABS: LEUKOCYTE ESTERASE UR AUTO RFX 2+ (NEGATIVE); WBC, URINE AUTO RFX 70 /HPF (0-3)
[2025-06-11] MEDS: ACETAMINOPHEN 325 MG TAB PO PRN (15:38)
[2025-06-12 04:03] VITALS: BP 108/53; TEMP 98.1; O2SAT 96
[2025-06-12] MEDS ORDERED: LIDOCAINE 1% SDV 5 ML VIAL SC PRN (06:00)
[2025-06-12] MEDS ORDERED: HEPARIN 1,000 UNITS/ML 10 ML VIAL (FOR RADIOLOGY & DIALYSIS ONLY) IV PRN (06:00)
[2025-06-12] MEDS ORDERED: SODIUM CHLORIDE 0.9% 1000 ML IV PRN (06:00)
[2025-06-12 06:44] LABS: BASO # 0.1 10^3/uL (0.0-0.2); BASO % 1.2 % (0.0-1.0); EOS # 0.5 10^3/uL (0.0-0.5); EOS % 7.0 % (0.0-3.0); LYMPH # 2.4 10^3/uL (1.5-5.0); LYMPH % 31.8 % (24.0-44.0); MONO # 0.9 10^3/uL (0.0-0.8); MONO % 12.2 % (2.0-8.0); NEUTROPHILS # 3.6 10^3/uL (1.5-8.5); NEUTROPHILS % 47.7 % (36.0-66.0); PLATELET COUNT, AUTOMATED 136 10^3/uL (150-450)
[2025-06-12 07:22] LABS: CALCIUM LEVEL 8.1 MG/DL (8.5-10.1); CARBON DIOXIDE LEVEL 26.0 MMOL/L (20-31); CHLORIDE LEVEL 98.0 MMOL/L (98-107); CREATININE FOR GFR 8.42 MG/DL (0.55-1.30); GLOMERULAR FILTRATION RATE 5.1 (>51); MAGNESIUM LEVEL 2.0 MG/DL (1.8-2.4); PHOSPHORUS LEVEL 4.7 MG/DL (2.5-4.9); POTASSIUM SERUM 3.5 MMOL/L (3.5-5.1); SODIUM LEVEL 137.0 MMOL/L (136-145)
[2025-06-12 07:38] VITALS: BP 104/49; TEMP 98.5; O2SAT 97
[2025-06-12] MEDS: LACTULOSE 20 GM/30 ML SYRUP UDC PO SCH (08:02)
[2025-06-12 12:08] VITALS: BP 97/51; TEMP 97.1; O2SAT 100
[2025-06-12] MEDS: IRON SUCROSE 100 MG/5 ML VIAL IV SCH (14:50)
[2025-06-12] MEDS: HEPARIN 1,000 UNITS/ML 10 ML VIAL (FOR RADIOLOGY & DIALYSIS ONLY) XX SCH (14:50)
[2025-06-12] MEDS ORDERED: LACT20EL PO (15:50)
[2025-06-12] MEDS ORDERED: ONDA-282 PO (15:50)
[2025-06-12] MEDS ORDERED: XIFA550T PO (15:50)
[2025-06-12] MEDS ORDERED: MIDO5TA PO (15:50)
[2025-06-12] MEDS: DARBEPOETIN 100 MCG/0.5 ML *DIALYSIS* SYRINGE IV SCH (15:56)
[2025-06-12 18:28] VITALS: BP 91/51
[2025-06-18] MEDS ORDERED: LACT20EL PO (12:45)
[2025-06-18] MEDS ORDERED: XIFA550T PO (12:45)
[2025-06-18] MEDS ORDERED: ONDA-282 PO (12:45)
[2025-06-25] MEDS ORDERED: MIDO5TA PO (15:12)
[2025-06-25] MEDS ORDERED: FLUD0.1T PO (15:12)
== END 2025-06-12 19:00 | disposition home or self-care (01) | DRG 640 ==
LOC: EDBD 07:41 → M ED 07:41 → M ED INP 07:42 → M PCU 14:18 → OBSVTOIN 06-09 19:02
PROVIDERS: ADMIT Student in an Organized Health Care Education/Training Program; ATTEND Internal Medicine
PROC: 5A1D70Z Performance of Urinary Filtration, Intermittent, Less than 6 Hours Per Day (ICD-10-PCS; principal; 2025-06-09)
PROC: 0W9G3ZZ Drainage of Peritoneal Cavity, Percutaneous Approach (ICD-10-PCS; 2025-06-11)
PROC: B246ZZZ Ultrasonography of Right and Left Heart (ICD-10-PCS; 2025-06-11)
DX: E87.70 Fluid overload, unspecified (principal); N18.6 End stage renal disease; Q61.3 Polycystic kidney, unspecified; I12.0 Hypertensive chronic kidney disease with stage 5 chronic kidney disease or end stage renal disease; Q44.6 Cystic disease of liver; Z68.42 Body mass index [BMI] 45.0-49.9, adult; I95.89 Other hypotension; E11.22 Type 2 diabetes mellitus with diabetic chronic kidney disease; K76.82 Hepatic encephalopathy; I95.3 Hypotension of hemodialysis; E66.01 Morbid (severe) obesity due to excess calories; K74.60 Unspecified cirrhosis of liver; G47.33 Obstructive sleep apnea (adult) (pediatric); E03.9 Hypothyroidism, unspecified; E78.5 Hyperlipidemia, unspecified; H40.9 Unspecified glaucoma; D63.1 Anemia in chronic kidney disease; K57.90 Diverticulosis of intestine, part unspecified, without perforation or abscess without bleeding; Z99.2 Dependence on renal dialysis; Z86.0101 Personal history of adenomatous and serrated colon polyps; Z87.891 Personal history of nicotine dependence; Z91.158 Patient's noncompliance with renal dialysis for other reason; Z90.49 Acquired absence of other specified parts of digestive tract; Z85.41 Personal history of malignant neoplasm of cervix uteri; Z91.148 Patient's other noncompliance with medication regimen for other reason; Z79.890 Hormone replacement therapy; Z79.899 Other long term (current) drug therapy; Z91.013 Allergy to seafood; Z91.018 Allergy to other foods